=== PATIENT | female | born 1940 | race Two or more races ===

== ENCOUNTER 2017-06-01 12:57 | Emergency (ER) | payer SELFPAY ==
[2017-06-01] MEDS ORDERED: Aspirin Low Dose CHEW TAB* 81 MG ONE (13:16)
[2017-06-01 13:44] VITALS: BP 168/93
[2017-06-01] MEDS ORDERED: NS 0.9% 500 ML BAG* 500 ML IV ONE (14:22)
[2017-06-01] MEDS ORDERED: Aspirin Low Dose CHEW TAB* 81 MG PO ONE (14:23)
--- NOTE | 2017-06-14 09:07 | UC ---
Rodolfo Washington Angela, scribed for Florencia Baldwin MD on 06/01/17 at 1341 . Cardiac HPI - HPI Summary HPI Summary: Ms. Everett is a pleasant 77 yo female, brought to [facility] from [place], c/o anxiety and diaphoresis. CT was for R shoulder pain x approx 3 days. 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 No report GI issues (although possible nausea?), no urinary sx (last urine approx 8am). Unclear last po. History difficult to obtain, pt is very anxious. Her pcp is in [facility], her family member (physician) primarily cares for her here in [place]. NOTE - history difficult to obtain due to general condition - History of Current Complaint Stated Complaint: CHEST PAIN Hx Obtained From: Patient, Family/Line Clearance Foreman Hx From Patient Unobtainable Due To: Other - LEVEL 5 CAVEAT - SOB, extremis Onset/Duration: Lasting Days Initial Severity: Moderate Current Severity: Severe Character: Heaviness Associated Signs & Symptoms: Positive: Chest Pain, SOB - Allergy/Home Medications Allergies/Adverse Reactions: Allergies Allergy/AdvReac Type Severity Reaction Status Date / Time Penicillins Allergy Rash Verified 06/01/17 14:00 PMH/Surg Hx/FS Hx/Imm Hx Previously Healthy: No - aortic stenosis with regurg, leiomyoma, anxiety Psychological History: Anxiety - Family History Known Family History: Positive: Unknown - due to level 5 caveat due to extremis Review of Systems Constitutional: Fatigue Skin: Other - diaphoretic Respiratory: Shortness Of Breath Cardiovascular: Chest Pain Gastrointestinal: Nausea Genitourinary: Negative Motor: Other - see hpi R hip discomfort 2/2 previous fall, but pt's son thinks ok Neurovascular: Other - see hpi. moving all 4 ext's Musculoskeletal: Other: - right shoulder pain. Neurological: Other - see hpi Psychological: Anxious Is Patient Immunocompromised?: No - none known All Other Systems Reviewed And Are Negative: No - Comments Additional Review of Systems Comments: ROS LIMITED BY LEVEL 5 CAVEAT - EXTREMIS Physical Exam Triage Information Reviewed: Yes Completion Of Physical Exam Limited Due To: Extremis Appearance: Well-Nourished, Ill-Appearing Vital Signs: Initial Vitals Temp Pulse Resp BP Pulse Ox 98.1 F 139 40 168/93 89 06/01/17 13:39 06/01/17 13:39 06/01/17 13:39 06/01/17 13:39 06/01/17 13:39 Vital Signs Reviewed: Yes Eye Exam: Normal - grossly normal. pupils equal bilat, opens eyes to command. ENT Exam: Normal - grossly normal, detailed not done. no stridor, no trismus Neck: Positive: Supple, Nontender Respiratory Exam: Other - decreased bibasilar breath sounds, breath sounds as auscultated are clear upper lobe (pt at approx 45 deg) Respiratory: Positive: Respiratory distress Cardiovascular Exam: Other - Tachycardic, rate regular, correlates with L radial pulse Abdominal Exam: Other - + abd distension, no fluid wave appreciated. Does not seem tender. Bowel Sounds: Positive: Present Musculoskeletal Exam: Normal - moves all 4 ext's, appears equal. Pt on stretcher at exam. Neurological Exam: Other - responds to questions single word appropriately. Follow simple commands. Psychological: Positive: Normal Response To Family Skin Exam: Other - + diaphoretic - Assessment/Plan Course Of Treatment: Brought directly over from CT. She did not have the CT, nor did she receive contrast. Pt's son arrived at bedside, reported that she does have a hx of anxiety reactions with diaphoresis, as such he and pt initially declined oxygen. However, they ultimately agreed. Pulse ox initially 97% ra, but decreased to low 80's, increased with oxygen face mask to 100%. VS noted. BG 193mg/dl. EKG reviewed - no old ekg available in [facility] - sinus tachy 115bpm, inv T's 3/F. Several non-spec ST / T abnormalities. EMS was called emergently immediately upon arrival to [facility] (see RN notes re arrival details). ASA 81mg po x 4 administered. Saline lock established with IV's just as EMS arrived. I notified Dr. Mota ED. - Clinical Impression Provider Diagnoses: R chest (shoulder) pain. sob in extremis Discharge - Discharge Plan Condition: Guarded Disposition: TRANS HIGHER LVL OF CARE FAC Referrals: Shankar Everett MD [Primary Care Provider] - The documentation as recorded by the Rodolfo davalos Angela accurately reflects the service I personally performed and the decisions made by me, Florencia Baldwin MD.
== END 2017-06-01 13:47 | disposition short-term general hospital (02) ==
LOC: UCEAST 12:57
DX: R07.89 Other chest pain (principal); M25.511 Pain in right shoulder; R06.02 Shortness of breath; R61 Generalized hyperhidrosis; F41.9 Anxiety disorder, unspecified; R00.0 Tachycardia, unspecified; R11.0 Nausea; M25.551 Pain in right hip; I35.0 Nonrheumatic aortic (valve) stenosis; Z88.0 Allergy status to penicillin
CPT/HCPCS: 99203; A9270-GY; G0463

== ENCOUNTER 2017-06-01 13:42 | Inpatient (IN) | payer SELFPAY ==
[2017-06-01] MEDS ORDERED: Aspirin Low Dose CHEW TAB* 81 MG PO ONE (14:07)
[2017-06-01] MEDS ORDERED: NS 0.9% 1000 ML* 1,000 ML IV ONE (14:07)
[2017-06-01] MEDS ORDERED: LORazepam INJ* 2 MG/ML 1 ML VIAL IV PUSH ONE (14:08)
[2017-06-01 14:09] LABS: FIO2 100
[2017-06-01 14:14] LABS: PCO2 Arterial 24 mmHg (35-45)
--- NOTE | 2017-06-01 14:29 | RAD ---
INDICATION: Shortness of breath COMPARISON: Chest x-ray dated September 24, 2016 TECHNIQUE: Single AP portable view of the chest was obtained. FINDINGS: Image quality is compromised due to the relative inferiority of a portable chest x-ray. There is mild cardiomegaly not readily appreciated on the previous chest x-ray. There is faint calcification overlying the arch of the aorta. Centrally the pulmonary vasculature is engorged and indistinct. The lungs are grossly clear. Visualized bones are normal for the patient's age. IMPRESSION: Chest x-ray findings are most consistent with cardiogenic pulmonary edema. Follow-up chest x-ray after an appropriate course of therapy is advised to ascertain resolution of imaging findings.
[2017-06-01 14:31] LABS: Hematocrit 38 % (35-47); Hemoglobin 11.9 g/dl (12.0-16.0); Mean Corpuscular HGB Conc 32 g/dl (31-36); Mean Corpuscular Hemoglobin 27 pg (27-31); Mean Corpuscular Volume 84 fL (80-97); Mean Platelet Volume 11 um3 (7.4-10.4); Red Blood Count 4.48 10^6/ul (4.0-5.4); Red Cell Distribution Width 15 % (10.5-15); White Blood Count 22.3 10^3/ul (3.5-10.8)
[2017-06-01 14:33] LABS: Add Diff/Slide Review? Slide Review Added; Comments Flag Yes
[2017-06-01] MEDS ORDERED: Furosemide IV* 10 MG/ML 10 ML VIAL (100 MG) IV ONE (14:42)
[2017-06-01 14:46] LABS: Albumin 4.2 g/dL (3.2-5.2); Alkaline Phosphatase 146 U/L (34-104); BUN/Creatinine Ratio 20.7 (8-20); Blood Urea Nitrogen 31 mg/dL (6-24); Calcium 9.5 mg/dL (8.6-10.3); Chloride 79 mmol/L (101-111); EGFR African American 43.4 (>60); EGFR Non-African American 33.8 (>60); Globulin 2.9 g/dL (2-4); Glucose 182 mg/dL (70-100); Magnesium 2.6 mg/dL (1.9-2.7); Total Protein 7.1 g/dL (6.4-8.9)
[2017-06-01 15:07] LABS: Potassium 5.3 mmol/L (3.5-5.0); Troponin I 0.08 ng/mL (<0.04)
[2017-06-01 15:08] LABS: Sodium 112 mmol/L (133-145)
[2017-06-01 15:09] LABS: Anion Gap 21 mmol/L (2-11); CO2 Carbon Dioxide 12 mmol/L (22-32)
[2017-06-01 15:12] LABS: TSH (Thyroid Stimulating Horm) 1.69 mcIU/mL (0.34-5.60)
[2017-06-01] MEDS ORDERED: Sodium Bicarbonate 8.4%* 50 ML SYRINGE ONE (15:14)
[2017-06-01 15:20] LABS: ALT 788 U/L (7-52); AST 1590 U/L (13-39)
[2017-06-01] MEDS: Sodium Bicarbonate 8.4%* 50 ML SYRINGE IV ONE ×2 (15:20→19:21)
[2017-06-01] MEDS: Sodium Bicarbonate 8.4% IV* 50 ML VIAL IV ONE ×2 (15:21→19:21)
[2017-06-01] MEDS ORDERED: NS 0.9% 1000 ML* 3,000 ML IV ONE ×2 (15:43→16:22)
[2017-06-01] MEDS ORDERED: Iodixanol* (CONTRAST) 320 MG/ML 100 ML SDV IV ONE (16:04)
[2017-06-01 16:19] LABS: Urine Bilirubin Negative (Negative); Urine Glucose Negative (Negative); Urine Nitrite Negative (Negative)
--- NOTE | 2017-06-01 16:20 | RAD ---
HISTORY: Chest pain, shortness of breath, back pain, COMPARISONS: None TECHNIQUE: Multiple contiguous axial CT scans were obtained of the chest, abdomen, and pelvis after the administration of intravenous contrast, timed to the pulmonary arterial phase of contrast demonstration.. Coronal and sagittal multiplanar reformations are submitted for review.. Oral contrast was not administered. FINDINGS: The study is limited by the phase of intravenous contrast administration. This limits evaluation of the solid organs and systemic arterial vasculature. CHEST NECK AND THYROID: The lower neck and thyroid are unremarkable. CHEST WALL: There is no lower cervical, axillary, or supraclavicular lymphadenopathy by size criteria. HEART AND PERICARDIUM: The heart is unremarkable. AORTA AND PULMONARY VASCULATURE: There is no pulmonary arterial filling defects to suggest pulmonary embolism. There is dilatation of the ascending thoracic aorta which measures up to 4.4 centers in transverse dimension. No contrast is noted within the aorta which precludes evaluation for dissection. There is no periaortic hematoma to suggest ruptured aneurysm. MEDIASTINUM: There is no mediastinal lymphadenopathy by size criteria. MARISA: There is no hilar lymphadenopathy by size criteria. AIRWAY AND ESOPHAGUS: The airway is unremarkable, without endobronchial filling defect. The esophagus is grossly normal. LUNG PARENCHYMA: The lungs are clear. PLEURA: There is a small right pleural effusion BONES AND SOFT TISSUES: No bone or soft tissue abnormalities are noted. ABDOMEN/PELVIS: LIVER: The liver is homogeneously enlarged measuring 21 cm in long axis. BILE DUCTS: There is no intrahepatic or extrahepatic biliary dilatation. GALLBLADDER: The gallbladder is normal, without pericholecystic inflammatory change. PANCREAS: The pancreas is normal, without mass or ductal dilatation. SPLEEN: Normal in size and appearance. UPPER GI TRACT: Evaluation of the gastrointestinal tract is limited by incomplete gastric distention. The upper GI tract is unremarkable. SMALL BOWEL \T\ MESENTERY: The small bowel is normal in contour, course, and caliber. There is no obstruction or dilatation. COLON: The colon is normal in contour, course, caliber. There is no pericolonic inflammatory change. ADRENALS: Normal bilaterally. KIDNEYS: The kidneys are normal in shape, size, contour, and axis. There is no hydronephrosis or nephrolithiasis. BLADDER: The bladder is collapsed and a Lancaster catheter. PELVIC ORGANS: The uterus is diffusely enlarged measuring up to 17 cm, with multiple calcified uterine fibroids. AORTA: There is calcific atherosclerotic disease of the abdominal aorta and its branches, without aneurysmal dilatation IVC: Unremarkable LYMPH NODES: There is no lymphadenopathy by size criteria. ABDOMINAL WALL: There is no evidence for abdominal wall hernia. BONES: There are mild diffuse degenerative changes. OTHER: There is a small amount of ascites. IMPRESSION: 1. EVALUATION IS LIMITED THE CONTRAST ENHANCEMENT IS LIMITED TO THE PULMONARY ARTERIAL PHASE WHICH PRECLUDES EVALUATION FOR AORTIC DISSECTION. 2. THERE IS NO PULMONARY ARTERIAL FILLING DEFECT TO SUGGEST PULMONARY EMBOLISM. 3. THERE IS ANEURYSMAL DILATATION OF THE ASCENDING THORACIC AORTA. THERE IS NO PERIAORTIC HEMATOMA TO SUGGEST RUPTURED ANEURYSM. 4. THERE IS A SMALL RIGHT PLEURAL EFFUSION. 5. THERE IS A SMALL AMOUNT OF ASCITES. 6. HEPATOMEGALY. 7. ENLARGED, FIBROID UTERUS
[2017-06-01 16:24] LABS: Urine Bacteria Absent (Absent)
[2017-06-01] MEDS ORDERED: KETAMINE HCL* 50 MG/ML 10 ML VIAL ONE (16:34)
[2017-06-01] MEDS ORDERED: Midazolam* 1 MG/ML 10 ML VIAL (10 MG) ONE (16:34)
[2017-06-01] MEDS ORDERED: Propofol* 100 ML ONE (16:39)
[2017-06-01] MEDS ORDERED: fentaNYL* 50 MCG/ML 5 ML VIAL (250 MCG VIAL) ONE (16:48)
[2017-06-01 16:51] LABS: Creatine Kinase 252 U/L (10-223)
[2017-06-01] MEDS ORDERED: fentaNYL* 50 MCG/ML 2 ML VIAL (100 MCG VIAL) IV SLOW PU ONE (17:00)
[2017-06-01 17:18] LABS: Acetaminophen < 15 mcg/mL; Salicylate < 2.50 mg/dL (<30)
[2017-06-01] MEDS ORDERED: ACETYLCYSTEINE IVPB ONE ×3 (17:33→22:33)
[2017-06-01] MEDS ORDERED: D5W IVPB ONE ×3 (17:33→22:33)
[2017-06-01] MEDS ORDERED: Albuterol/Ipratropium NEB.SOL* Albuterol 2.5 MG/Ipratropium 0.5 MG 3 ML INH PRN (17:42)
[2017-06-01 17:51] LABS: Venous Bicarbonate HCO3 19.1 mmol/L (24-28)
[2017-06-01 17:57] LABS: Hematocrit 30 % (35-47); Hemoglobin 9.6 g/dl (12.0-16.0); Mean Corpuscular HGB Conc 32 g/dl (31-36); Mean Corpuscular Hemoglobin 26 pg (27-31); Mean Corpuscular Volume 83 fL (80-97); Mean Platelet Volume 10 um3 (7.4-10.4); Red Blood Count 3.63 10^6/ul (4.0-5.4); Red Cell Distribution Width 15 % (10.5-15); White Blood Count 18.4 10^3/ul (3.5-10.8)
[2017-06-01] MEDS ORDERED: Norepinephrine 16MCG/ML IVPRE* 4,000 MCG/250 ML BAG IV ONE (18:05)
[2017-06-01 18:09] LABS: Albumin 2.9 g/dL (3.2-5.2); BUN/Creatinine Ratio 25.4 (8-20); Calcium 7.7 mg/dL (8.6-10.3); Direct Bilirubin 1.9 mg/dL (0.03-0.18); EGFR African American 51.2 (>60); EGFR Non-African American 39.8 (>60); Globulin 1.9 g/dL (2-4); Indirect Bilirubin 1.4 mg/dL (0.3-1.0); Phosphorus 4.6 mg/dL (2.5-5.0); Potassium 4.5 mmol/L (3.5-5.0); Total Bilirubin 3.3 mg/dL (0.2-1.0); Total Protein 4.8 g/dL (6.4-8.9)
[2017-06-01] MEDS ORDERED: Phytonadione INJ (Adult)* 10 MG in NS 0.9% 50 ML* 50 ML IV ONE (18:17)
[2017-06-01 18:25] LABS: Troponin I 0.07 ng/mL (<0.04)
--- NOTE | 2017-06-01 18:32 | RAD ---
HISTORY: Post intubation, central line placement COMPARISONS: June 01, 2017 VIEWS: 1: frontal portable view of the chest at 5:50 PM FINDINGS: LINES AND TUBES: An endotracheal tube is noted overlying the trachea with the tip just above the gilberto. A right internal jugular venous catheter is noted with the tip overlying the cavoatrial junction. A gastric tube is noted with the tip in the left upper quadrant in a prepyloric position. CARDIOMEDIASTINAL SILHOUETTE: The cardiac silhouette is enlarged. The cardiomediastinal silhouette is otherwise normal for portable technique. PLEURA: The costophrenic angles are sharp. No pleural abnormalities are noted. LUNG PARENCHYMA: The lungs are clear. ABDOMEN: The upper abdomen is clear. There is no subphrenic gas. BONES AND SOFT TISSUES: No bone or soft tissue abnormalities are noted. IMPRESSION: 1. LINES AND TUBES ABOVE. 2. CARDIOMEGALY.
--- NOTE | 2017-06-01 18:51 | ED ---
Leanne Washington Thomas, scribed for Nick Moat MD on 06/01/17 at 1427 . Shortness of Breath - HPI Summary HPI Summary: The pt is a 77 y/o F BIBA from [facility] and c/o sudden-onset SOB that began this AM at 10:00. Her son, who is also her PCP, is her historian d/t her moderate respiratory distress. Today, she was scheduled for a CT Chest/Abd/Pel without contrast, and after taking Zofran before the procedure, she became anxious, diaphoretic, and had labored breathing. The CT scan was scheduled because she has been having 5 days of nausea as well as longstanding abdominal complaints. Pt additionally c/o R shoulder pain and lumbar-region back pain. She is diaphoretic. She has not slept well for the last five days. She may have inured herself in the bathroom yesterday night. She has had anxiety attacks throughout her life, but none of her prior attacks have been to this severity or did she have diaphoresis. Pt denies fever. Her heart rate is normally 110. The only medications she has taken today are her anxiolytic medication as well as the Zofran. She does not have any recent travel or surgeries. PMHx: aortic stenosis , regurgitation, DM, leiomyoma. SHx: no smoking, no alcohol use, no illicit drug use. FHx: DM, HLD. - History of Current Complaint Chief Complaint: EDShortnessOfBreath Time Seen by Provider: 06/01/17 14:02 Hx Obtained From: Patient, Family/Contract Administration Manager - son Dr. Everett is present Onset/Duration: Sudden Onset, Lasting Hours - onset this AM at 10:00, Still Present Timing: Constant Current Severity: Moderate Dyspnea At: Rest Aggrevating Factors: Nothing Alleviating Factors: Nothing Associated Signs & Symptoms: Negative - Allergy/Home Medications Allergies/Adverse Reactions: Allergies Allergy/AdvReac Type Severity Reaction Status Date / Time Penicillins Allergy Rash Verified 06/01/17 14:00 PMH/Surg Hx/FS Hx/Imm Hx Previously Healthy: No Endocrine/Hematology History: Reports: Hx Diabetes Cardiovascular History: Reports: Other Cardiovascular Problems/Disorders - Hx aortic stenosis, regurgitation - Cancer History Cancer Type, 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 Negative: Fever Positive: Shortness Of Breath - onset this AM at 10:00, Other - POS: tachypnic, labored breathing Positive: Nausea - x5 days, Other - POS: longstanding abdominal complaints Positive: Other - POS: R shoulder back, lumbar-region back pain Neurological: Other - POS: insomnia (x5 days) All Other Systems Reviewed And Are Negative: Yes Physical Exam - Summary Physical Exam Summary: The patient is well-nourished in moderate respiratory distress and in no acute pain. The skin is warm and diaphoretic and skin color reflects adequate perfusion. There is decreased skin turgor. HEENT: The head is normocephalic and atraumatic. The pupils are equal and reactive. The conjunctivae are clear and without drainage. Nares are patent and without drainage. Mouth reveals dry mucous membranes and the throat is without erythema and exudate. The external ears are intact. The ear canals are patent and without drainage. The tympanic membranes are intact. Neck is supple with full range of motion and non-tender. There are no carotid bruits. There is neck vein distension. There is no stridor. There is a positive hepatojugular reflux. Respiratory: Chest is non-tender. There are intercostal retractions and superclavicular retractions. There are bibasilar rales. There is no wheezing Cardiovascular: Heart is tachycardic and regular rhythm. There is no rub auscultated. She has a murmur heard best at the 2nd intercostal space. There is no slight pedal edema of the lower extremities and pulses are symmetrical and equal. Abdomen: The abdomen is soft and non-tender. There is no organomegaly palpated. The abdomen is distended. Musculoskeletal: There is no back pain noted. Extremities are non-tender with full range of motion. There is good capillary refill at 3 seconds. There is slight pedal edema of the lower extremities. There is no calf tenderness elicited. There are no pulsatile masses. There is some right-sided lumbar pain appreciated, but there is no bruising. Neurological: Patient is alert and oriented to person, place and time. The patient has symmetrical motor strength in all four extremities. Cranial nerves are grossly intact. Deep tendon reflexes are symmetrical and equal in all four extremities. There is no focal weakness. Psychiatric: The patient is alert, visibly anxious, and in moderate distress. She is able to sit up to commands. Triage Information Reviewed: Yes Vital Signs On Initial Exam: Initial Vitals Temp Pulse Resp BP Pulse Ox 97.5 F 111 32 159/63 100 06/01/17 13:58 06/01/17 13:58 06/01/17 13:58 06/01/17 13:58 06/01/17 13:58 Vital Signs Reviewed: Yes - Jaziel Coma Scale Coma Scale Total: 14 Diagnostics - Vital Signs Vital Signs Temp Pulse Resp BP Pulse Ox 06/01/17 14:12 110 28 100 06/01/17 14:11 159/78 06/01/17 13:58 97.5 F 111 32 159/63 100 - Laboratory Lab Results: Lab Results 06/01/17 Range/Units 14:00 Patient Temperature Not Reportable ABG pH Pending ABG pH (Temp Correct) Pending ABG pCO2 Pending ABG pCO2 (Temp Corrct Pending ABG pO2 Pending ABG pO2 (Temp Correct Pending ABG HCO3 Pending ABG O2 Saturation Pending ABG Base Excess Pending Respiration Rate Not Reportable O2 Delivery Device Nrb Ventilator Type Not Reportable Vent Mode Not Reportable FiO2 100 Inspiratory Time Not Reportable PEEP Not Reportable Pressure Support Not Reportable Pressure Control Not Reportable EPAP Not Reportable IPAP Not Reportable BiPAP Not Reportable Result Diagrams: 06/01/17 17:25 06/01/17 17:25 Lab Statement: Any lab studies that have been ordered have been reviewed, and results considered in the medical decision making process. - Radiology CXR Xray Interpretation: No Acute Changes - Chest x-ray findings are most consistent with cardiogenic pulmonary edema. Follow-up chest x-ray after an appropriate course of therapy is advised to ascertain resolution of imaging findings. ED physician has reviewed these findings and agrees. Radiology Interpretation Completed By: Radiologist Re-Evaluation - Re-Evaluation First Eval Re-Evaluation Time: 14:44 Change: Improved Comment: She is resting a bit more comofortably. She is still a bit tachypnic. Course/Dx - Course Assessment/Plan: The pt is a 77 y/o F BIBA from [facility] and c/o sudden-onset SOB that began this AM at 10:00. Her son, who is also her PCP, is her historian d/t her moderate respiratory distress. Today, she was scheduled for a CT Chest/Abd/ Pel without contrast, and after taking Zofran before the procedure, she became anxious, diaphoretic, and had labored breathing. The CT scan was scheduled because she has been having 5 days of nausea as well as longstanding abdominal complaints. Pt additionally c/o R shoulder pain and lumbar-region back pain. She is diaphoretic. She has not slept well for the last five days. She may have inured herself in the bathroom yesterday night. She has had anxiety attacks throughout her life, but none of her prior attacks have been to this severity or did she have diaphoresis. Pt denies fever. Her heart rate is normally 110. The only medications she has taken today are her anxiolytic medication as well as the Zofran. She does not have any recent travel or surgeries. PMHx: aortic stenosis, regurgitation, DM, leiomyoma. SHx: no smoking, no alcohol use, no illicit drug use. FHx: DM, HLD. At re-evaluation, she is feeling a bit more comfortable. She is still la bit tachypnic. In the ED course the patient was given ASA, Lasix, IV fluids, sodium bicarbonate, and Ativan. Bloodwork shows WBC 22.3, Hgb 11.9, INR 2.36, ABG pH 7.09, ABG pCO2 24, ABG pO2 232, ABG HCO3 8.6, ABG O2Sat 98.8, ABG base excess -21.0, Sodium 112, Potassium 5.3, Chloride 79, CO2 12, Anion gap 21, BUN 31, Creatinine 1.50, lactic acid 12.3, bilirubin 3.80, AST 1590, ALT 788, AlkPhos 146, Troponin 0.08, BNP 4971. I consulted extensively with Dr. Everett. Chest x-ray findings are most consistent with cardiogenic pulmonary edema. Follow-up chest x-ray after an appropriate course of therapy is advised to ascertain resolution of imaging findings. The patient is diagnosed with acute hepatic failure, respiratory distress, and acidosis. I consulted with Dr. Cruz, upper trimmer, who admits the patient to the ICU. 75 minutes critical care time. - Diagnoses Differential Diagnosis/HQI/PQRI: Positive: CHF, ME, Pneumonia, Pulmonary Embolism, Pulmonary Edema, Other - acute hepatic failure, acetaminophen overdose , Provider Diagnoses: Acidosis, Respiratory distress, Acute hepatic failure - Physician Notifications Discussed Care of Patient With: Jorge Cruz Time Discussed With Above Provider: 15:30 Instructed by Provider To: Other - Dr. Cruz, upper trimmer, admits the patient to [facility]. - Critical Care Time Critical Care Time: 30-74 min - 45 minutes Discharge - Discharge Plan Condition: Critical Disposition: ADMITTED TO [facility] Discharge Disposition Comment: By Dr. Cruz. The documentation as recorded by the Leanne davalos Thomas accurately reflects the service I personally performed and the decisions made by me, Nick Mota MD.
[2017-06-01] MEDS: Propofol* 100 ML IV SCH (19:23)
[2017-06-01] MEDS: Pantoprazole IV* 40 MG IV SCH (19:30)
--- NOTE | 2017-06-01 19:49 | HP ---
H&P (Free Text) History and Physical: CRITICAL CARE MEDICINE DATE: 06/01/17 TIME: 1700 PRIMARY CARE PROVIDER: Karlos REFERRING PROVIDER: Svetlana REASON/CHIEF COMPLAINT: MSOF HISTORY OF PRESENT ILLNESS: 77 F with h/o leiomyoma/uterine fibroid, mod , anxiety with recent complaints of R shoulder pains and increased anxiety. Questionable referred RUQ pain and was scheduled for CT today. When laying flat for CT she became extremly anxious and diaphoretic. She had dry heaves. BIBA to ED. Quiet anxious and tachypnic in ED. Given ativan and placed on bipap. CXR with mild fluid. planning ct but labs with multiple abnormalities and severe metabolic acidosis. Evaluated in ED. Pts son present. REVIEW OF SYSTEMS: As per HPI. anxious person but increased last 5 days. poor sleep. anorexia. dec Uout perhaps. PAST MEDICAL HISTORY: As per HPI. MEDICATIONS: Reviewed. recently trial of prosax 10mg daily for 2 days last week then stopped. Hydroxazine 500mg daily x 2days then stopped. Trimetazine. pepcid bid recently. ALLERGIES: PCN SOCIAL HISTORY: Reviewed. FAMILY HISTORY: Noncontributory at present. PHYSICAL EXAM: Vital Signs: Reviewed. Hr 70s, SBP into 80-90s. RR 30, 30% fio2, but MV ~16lpm on bipap. Neurologic: she had recieved ativan and was more lethargic to obtunded but still with work of breathing high HEENT: anicteric, perrl, mm dry Cardiovascular: s1, s2, 4/6 stas of Respiratory: fine crackles at bases but not diffuse Abdomen: distended, soft, no RUQ tenderness illicited Extremities: no edema, ice cold Access: piv LABS: Reviewed. IMAGING: Reviewed. MEDICATIONS: Reviewed. ASSESSMENT: 77 F with MSOF Multiple entities and ailments without pinpoint dx Acute to Subacute fulminate liver failure - likely toxin related Heptatic encephalopathy grade 2 at least with my exam Acute hypoxic respiratory failure, sec to compensation failure Severe lactic acidosis Acute renal failure DIC PLAN: admit to icu Neurologic: sedate with intubation. avoid any worsening potentials of cerebral edema with liver failure. keep comfortable. check amm. Cardiovascular: High metabolic demands, and underlying can become problematic and may need inotropic support if CO unable to keep up. But severely volume depleted for what her optimal needs are at present (not dehydrated alone leading to her ailment- optivolemic state at present will be overload to normal self). 6L bolus and f/u. Respiratory: intubate. mv. maintain ventilatory compensation and lung protection. Gastrointestinal: ogt. sup. liver is acting like a toxic insult with ischemic hepatocytes, non obstructive, and no vascular abn seen to explain on ct. seemingly more like a subacute liver failure now hopefully towards its peak rather then just acute today. numbers likely still to worsen but hopefully acceleration lessen. tx with nac (although tylenol neg) given potential toxins. Renal/Metabolic: stephanie sec to acid and pre-renal at present. hopefully can recover with volume loading. may need bicarb gtt buffer. As explained to pts son , would look if not improved by am with adequate renal work, to consider crrt. LA will be slow to clear but need to avoid acid creation. Infectious Disease: at risk but no acute abx needs. check bc. check hepatitis panel. Hematology: f/u dic panel. may need early vit k. potential need for cryo or at least ffp, but no acute bleeding at present. Endocrine: no steroid indication at present. f/u bg to ensure no hypoglycemia. Musculoskeletal: bedrest. Psych/Social: son updated at length and agreement with plans. Supportive and preventative care as ordered. SUP: ppi VTE prophylaxis: avoid chemical presently; scds. Lancaster catheter given critical illness, monitoring needs for accurate assessment of STEPHANIE and KDIGO criteria for critically ill patients and to avoid potential harms of urinary retention, skin breakdown/ulcers. Disposition: ICU Code Status: Full Critical Care Time: 135min, excl procedures FKathy Cruz DO
[2017-06-01] MEDS ORDERED: Norepinephrine 16MCG/ML IVPRE* 4,000 MCG/250 ML BAG IV SCH (20:00)
[2017-06-01] MEDS: NS 0.9% 1000 ML* 1,000 ML IV SCH ×2 (20:30→23:27)
[2017-06-01] MEDS: Chlorhexidine MOUTHWASH 0.12%* 15 ML UDC TOPICAL SCH ×2 (20:34→22:31)
[2017-06-01 22:23] LABS: Venous Bicarbonate HCO3 17.1 mmol/L (24-28)
[2017-06-01] MEDS: fentaNYL* 50 MCG/ML 2 ML VIAL (100 MCG VIAL) IV SLOW PU PRN (22:31)
--- NOTE | 2017-06-01 22:36 | PN ---
Progress Note - Progress Note Date of Service: 06/01/17 Note: CRITICAL CARE MEDICINE PROCEDURE NOTE DATE: 06/01/17 TIME: 1600 SERVICE: Critical Care Medicine LOCATION OF PROCEDURE: ICU PROCEDURE: Endotracheal intubation PROCEDURALIST: Dr. Cruz Consent obtain: Yes, procedure performed emergently Time out held: Not indicated INDICATION: Acute respiratory failure secondary to severe metabolic acidosis. PROCEDURE: Oxygenation maintained and vitals monitored. Patient in supine position. Pre-medication with fentanyl 50mcg, versed 4mg (additional 2mg post intubation) and 150mg ketamine. Glidescope #3 inserted with Grade 2 view obtained. 7.5 endotracheal tube inserted to 22cm lip. Good chest rise with breath sounds appreciated in bilaterally lung randolph. EtCO2 + color change. Portable chest x-ray with ett right above gilberto and re-tracted 2cm to 20cm. Patient otherwise tolerated well. Joan Cruz DO
[2017-06-01 22:39] LABS: Albumin 2.2 g/dL (3.2-5.2); BUN/Creatinine Ratio 26.7 (8-20); EGFR African American 78.3 (>60); EGFR Non-African American 60.9 (>60); Globulin 1.7 g/dL (2-4); Total Bilirubin 2.8 mg/dL (0.2-1.0); Total Protein 3.9 g/dL (6.4-8.9)
--- NOTE | 2017-06-01 22:39 | PN ---
Progress Note - Progress Note Date of Service: 06/01/17 Note: CRITICAL CARE MEDICINE PROCEDURE NOTE DATE: 06/01/17 TIME: 1640 SERVICE: Critical Care Medicine LOCATION OF PROCEDURE: ICU PROCEDURE: Central line insertion PROCEDURALIST: Dr. Cruz Consent obtain: Yes, verbal consent from pts son Dr. Donald Everett. Time out held: Yes INDICATION: MSOF, acute liver failure and hypovolemic shock PROCEDURE: Oxygenation maintained and vitals monitored. Patient in supine position. SITE: RIGHT Internal jugular Site preparation with chlorhexidine locally. Full sterile drape, gown, hat, mask, gloves. 5ml 1% Lidocaine utilized at incision site. Standard sterile Seldinger technique utilized via ultrasound guidance and catheter was inserted to 15cm and sutured in place. Good blood return. Minimal blood loss. Site dressed with tegaderm. Portable chest x-ray with line slightly low and retracted 2cm sterile to 13cm. Patient otherwise tolerated well. Joan Cruz, DO
[2017-06-01 22:42] LABS: Calcium 5.6 mg/dL (8.6-10.3); Troponin I 0.07 ng/mL (<0.04)
[2017-06-01] MEDS ORDERED: NS IV SCH ×2 (23:00)
[2017-06-01] MEDS ORDERED: SODIUM BICARBONATE IV SCH ×2 (23:00)
[2017-06-01] MEDS: Sodium Bicarbonate 8.4% IV* 75 MEQ in NS 0.45% 1000 ML BAG* 1,000 ML IVPB SCH (23:46)
[2017-06-02] MEDS: Chlorhexidine MOUTHWASH 0.12%* 15 ML UDC TOPICAL SCH ×5 (01:55→21:23)
[2017-06-02] MEDS: Sodium Bicarbonate 8.4% IV* 75 MEQ in NS 0.45% 1000 ML BAG* 1,000 ML IVPB SCH (06:04)
[2017-06-02 06:15] LABS: Hematocrit 31 % (35-47); Hemoglobin 10.3 g/dl (12.0-16.0); Mean Corpuscular HGB Conc 33 g/dl (31-36); Mean Corpuscular Hemoglobin 27 pg (27-31); Mean Corpuscular Volume 81 fL (80-97); Mean Platelet Volume 10 um3 (7.4-10.4); Red Blood Count 3.82 10^6/ul (4.0-5.4); Red Cell Distribution Width 15 % (10.5-15); White Blood Count 17.3 10^3/ul (3.5-10.8)
[2017-06-02] MEDS: Propofol* 100 ML IV SCH ×2 (06:17→18:51)
[2017-06-02 06:19] LABS: Venous Bicarbonate HCO3 20.9 mmol/L (24-28)
[2017-06-02 06:30] LABS: Albumin 2.6 g/dL (3.2-5.2); BUN/Creatinine Ratio 26.7 (8-20); Calcium 6.6 mg/dL (8.6-10.3); Direct Bilirubin 1.5 mg/dL (0.03-0.18); EGFR African American 65.5 (>60); Globulin 1.9 g/dL (2-4); Indirect Bilirubin 1.2 mg/dL (0.3-1.0); Phosphorus 2.3 mg/dL (2.5-5.0); Potassium 3.8 mmol/L (3.5-5.0); Total Bilirubin 2.7 mg/dL (0.2-1.0); Total Protein 4.5 g/dL (6.4-8.9)
[2017-06-02 07:09] LABS: Magnesium 1.5 mg/dL (1.9-2.7)
[2017-06-02] MEDS ORDERED: Magnesium Sulfate 2 GM IV* 2 GM/50 ML BAG IVPB ONE (07:39)
--- NOTE | 2017-06-02 07:45 | RAD ---
HISTORY: Line placement COMPARISONS: June 01, 2017 at 4:57 PM VIEWS: 1: frontal portable view of the chest at 11:07 PM FINDINGS: LINES AND TUBES: An endotracheal tube is noted with the tip overlying the trachea just above the gilberto. A right internal jugular venous catheter is noted with the tip overlying the cavoatrial junction. A gastric tube is noted. The tip is below the [id number] the current examination but is below the diaphragm. CARDIOMEDIASTINAL SILHOUETTE: The cardiac silhouette is enlarged. The cardiomediastinal silhouette is otherwise normal for portable technique. PLEURA: The costophrenic angles are sharp. No pleural abnormalities are noted. LUNG PARENCHYMA: The lungs are clear. ABDOMEN: The upper abdomen is clear. There is no subphrenic gas. BONES AND SOFT TISSUES: No bone or soft tissue abnormalities are noted. IMPRESSION: LINES AND TUBES ABOVE. CARDIOMEGALY.
--- NOTE | 2017-06-02 08:41 | RAD ---
HISTORY: Acute liver failure COMPARISONS: None TECHNIQUE: Multiple transverse and longitudinal ultrasound images were obtained of the right upper quadrant of the abdomen using grayscale, color Doppler, and spectral Doppler imaging. FINDINGS: LIVER: The liver is normal in shape, size, contour, and echogenicity. There are no focal parenchymal masses. There is normal hepatopedal flow of the portal vein on Doppler imaging. BILIARY TREE: There is no intrahepatic or extrahepatic biliary dilatation. The common duct measures 0.2 cm. GALLBLADDER: The gallbladder wall is thickened up to 1 cm. PANCREAS: The head of the pancreas is unremarkable. The tail of the pancreas is not well visualized secondary to overlying bowel gas. RIGHT KIDNEY: The right kidney is normal in shape, size, contour, and echogenicity. There is no hydronephrosis or nephrolithiasis. The right kidney measures 9.7 x 4.8 x 5.5 cm. AORTA AND IVC: The aorta and IVC are unremarkable. Normal hepatic vein waveforms are identified on spectral Doppler imaging. FLUID: There is a small amount of ascites OTHER FINDINGS: None. IMPRESSION: 1. ASCITES. 2. GALLBLADDER WALL THICKENING UP TO 1 CM IN SIZE WHICH MAY REFLECT HYPOPROTEINEMIA, REACTIVE EDEMA FROM LIVER INFLAMMATION, OR A PRIMARY INFECTIOUS OR INFLAMMATORY PROCESS OF THE GALLBLADDER.
[2017-06-02] MEDS ORDERED: Phytonadione INJ (Adult)* 10 MG/ML 1 ML AMP IV ONE (12:00)
--- NOTE | 2017-06-02 13:33 | PN ---
Progress Note - Progress Note Date of Service: 06/02/17 Note: CRITICAL CARE MEDICINE DATE: 06/02/17 TIME: 945 SUBJECTIVE: Patient seen and examined. son updated. PHYSICAL EXAM: Vital Signs: Reviewed. Hr 70s, SBP into 90 -100s coming off levo. 30% fio2, aprv. Neurologic: sedated to rass -2 with very low dose prop. grimace to stimuli and some spont movement but not spont opening eyes HEENT: anicteric, perrl, mm appear dry Cardiovascular: s1, s2, 4/6 stas of Respiratory: coarse bl no rales Abdomen: distended, soft, anasacra Extremities: 3+edema, warmer Access: cvc LABS: Reviewed. IMAGING: Reviewed. MEDICATIONS: Reviewed. ASSESSMENT: 77 F with MSOF Acute to Subacute fulminate liver failure - likely toxin related of unknown etiology Heptatic encephalopathy grade 2 to 3 at this stage likely Acute hypoxic respiratory failure, sec to compensation failure, stable Severe lactic acidosis, resolving slowly Acute renal failure - holding DIC - still with depletion but no active bleeding PLAN: Neurologic: maintain on prop today. prn fent. encephalopathy +/- delirium may be more present or confounding but allow time. eventually tailor lactulose needs to degree + rifamin perhaps. Cardiovascular: demands are much better. perfusing well. intravasc volume holding and interstial volume up to an optivolemic standpoint at present which will ultimately need to mobilize in flow phase as hopefully ebb needs fulfilled. tolerable. off levo. dec ivf. Respiratory: maintained of aprv protection today. MV better. high pressures dec some. Fio2 well. time Gastrointestinal: toxic acute liver insult and hepatocyte ischemia. etiology suspect. hopefully plateuaing at peak and follow for improvement pattern. f/u synthetic function. trophic tf today. may need some time and then lactulose needs and bowel regimen as needed. US liver today to ensure no surprises. Renal/Metabolic: natali holding. she is post contrast and need to watch. coming off bicarb buffer. if we have stability without acid production and adequate urine clearance she should continue to improve. No hd needs but still may be slow progress at first. f/u lytes Infectious Disease: at risk but no acute abx needs. hepatitis panel neg. Hematology: dic present but no active bleeding. can reserve ffp for now but low threshold for use. virt k again. would need cryo if bleeding occurs. Endocrine: no steroid indication at present. bg has been stable to reactively up. no hypoglycemia. no insulin needs yet. Musculoskeletal: bedrest. Psych/Social: son updated at length and agreement with plans. Supportive and preventative care as ordered. SUP: ppi VTE prophylaxis: avoid chemical presently; scds. Lancaster catheter given critical illness, monitoring needs for accurate assessment of NATALI and KDIGO criteria for critically ill patients and to avoid potential harms of urinary retention, skin breakdown/ulcers. Disposition: ICU Code Status: Full Critical Care Time: 75min Joan Cruz DO
[2017-06-02] MEDS ORDERED: Albumin Human 25%* 50 ML BTL IV ONE ×2 (14:07→20:37)
[2017-06-02 14:40] LABS: Venous Bicarbonate HCO3 23.1 mmol/L (24-28)
[2017-06-02] MEDS ORDERED: Norepinephrine 16MCG/ML IVPRE* 4,000 MCG/250 ML BAG IV SCH (14:40)
[2017-06-02 15:00] LABS: Albumin 2.6 g/dL (3.2-5.2); BUN/Creatinine Ratio 25.6 (8-20); Calcium 6.7 mg/dL (8.6-10.3); EGFR African American 57.8 (>60); Potassium 3.6 mmol/L (3.5-5.0); Total Bilirubin 2.5 mg/dL (0.2-1.0); Total Protein 4.6 g/dL (6.4-8.9)
[2017-06-02] MEDS ORDERED: ACETYLCYSTEINE IVPB ONE (15:00)
[2017-06-02] MEDS ORDERED: D5W IVPB ONE (15:00)
[2017-06-02] MEDS: Albumin Human 25%* 50 ML in PREMIX* 0 ML IV SCH ×2 (16:13→20:42)
[2017-06-02] MEDS: Pantoprazole IV* 40 MG IV SCH (18:51)
[2017-06-03] MEDS: Chlorhexidine MOUTHWASH 0.12%* 15 ML UDC TOPICAL SCH ×6 (00:37→20:45)
[2017-06-03] MEDS: Albumin Human 25%* 50 ML in PREMIX* 0 ML IV SCH ×2 (01:37→08:10)
[2017-06-03] MEDS: fentaNYL* 50 MCG/ML 2 ML VIAL (100 MCG VIAL) IV SLOW PU PRN ×6 (01:37→22:13)
[2017-06-03] MEDS: Propofol* 100 ML IV SCH ×2 (03:48→15:00)
[2017-06-03 05:59] LABS: Hematocrit 30 % (35-47); Hemoglobin 9.9 g/dl (12.0-16.0); Mean Corpuscular HGB Conc 34 g/dl (31-36); Mean Corpuscular Hemoglobin 27 pg (27-31); Mean Corpuscular Volume 82 fL (80-97); Mean Platelet Volume 10 um3 (7.4-10.4); Red Blood Count 3.62 10^6/ul (4.0-5.4); Red Cell Distribution Width 15 % (10.5-15); White Blood Count 14.4 10^3/ul (3.5-10.8)
[2017-06-03 06:09] LABS: BUN/Creatinine Ratio 21.3 (8-20); Calcium 7.2 mg/dL (8.6-10.3); EGFR African American 41.8 (>60); EGFR Non-African American 32.5 (>60); Magnesium 2.1 mg/dL (1.9-2.7); Phosphorus 2.1 mg/dL (2.5-5.0); Potassium 3.2 mmol/L (3.5-5.0)
[2017-06-03 06:17] LABS: Venous Bicarbonate HCO3 23.1 mmol/L (24-28)
[2017-06-03] MEDS ORDERED: Furosemide IV* 10 MG/ML VIAL (40 MG) IV SLOW PU ONE (07:35)
[2017-06-03] MEDS ORDERED: Albumin Human 25%* 50 ML BTL IV ONE (08:03)
[2017-06-03 08:05] LABS: Albumin 2.7 g/dL (3.2-5.2); Direct Bilirubin 1.2 mg/dL (0.03-0.18); Globulin 1.8 g/dL (2-4); Indirect Bilirubin 1.4 mg/dL (0.3-1.0); Total Bilirubin 2.6 mg/dL (0.2-1.0); Total Protein 4.5 g/dL (6.4-8.9)
[2017-06-03] MEDS ORDERED: Potassium Phosphate IV* 15 MMOLE in NS 0.9% 250 ML* 250 ML IVPB ONE (10:30)
--- NOTE | 2017-06-03 11:14 | PN ---
Progress Note - Progress Note Date of Service: 06/03/17 Note: CRITICAL CARE MEDICINE DATE: 06/03/17 TIME: 900 SUBJECTIVE: Patient seen and examined. d/w pts son via phone. PHYSICAL EXAM: Vital Signs: Reviewed. Hr 70s, SBP into 100s, map >65 off levo.30% fio2, aprv. Neurologic: sedated to rass -2; prop held and slow to respond but responding to pain and moving head about but no spont eye opening yet. scleral edema and mild jaundice, perrl. HEENT: mm appear dry with increased subglottic secretions Cardiovascular: s1, s2, 4/6 stas of Respiratory: coarse bl no rales Abdomen: distended, but less so, soft, anasacra in abd better, mild palpable ascites perhaps Extremities: 3+edema, warm Access: cvc LABS: Reviewed. IMAGING: Reviewed. MEDICATIONS: Reviewed. ASSESSMENT: 77 F with MSOF Acute toxic/ischemic hepatitis/hepatic failure- improving. Heptatic encephalopathy grade 2 perhaps but re-eval off prop today. Acute hypoxic respiratory failure - improving Hypovolemic shock on admission - improved Severe lactic acidosis, resolving Acute renal failure, multifactorial, including component of atn- holding DIC - improved. PLAN: Neurologic: sedation vacation today. re-eval neuro status. again, would have been at risk for cerebral edema and may have to consider ct if not awakening approporiately, but has concomitant multifactorial reasons including acute accelerate ammonia level for depressed mentation level as wekk as sedatives. give her time. Cardiovascular: perusing well. off levo. bp well. intravsacular maintained and interstial grossly overloaded to optivolemic resuscitation state but now needing to mobilize weight of water. awaiting improved renal recovery and/or diuetics phase. stable. Respiratory: FiO2 well. trial to cpap this am but ms inhibiting conversion. time. can place on apv today and see where her compliance remains. not ready for liberation yet as this may still take a few days to line up with her needs for hepatic and renal recovery, and more so mentation. Gastrointestinal: hepatitis improving. bili even down. inc tf as tolerable today. sup. at request of pts son will ask GI to eval for any further thoughts. can come off NAC today post 48hr tx and post peaked and improved transaminasis. add lactulose for BMs today but great to see ammonia clearing already showing the phase of this acute injury. again, number not always correlating with encephalopathy degree. clinical f/u Renal/Metabolic: natali holding but lag, perhaps post contrast or just oliguric atn phase post shock she is post contrast and need to watch. not requiring buffer. off ivf other then gtt needs. trial lasix today but still may be early for response. not acting hepatorenal which is great. At resquest of son we can ask nephro opinion as well. Na stable. gently replete K phos. 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 labs tomorrow. Infectious Disease: at risk but no acute abx needs. Hematology: dic improved; fibrinogen up and inr down. still holding off on hsq for now. Endocrine: no steroid indication at present. bg has been stable to reactively up. no hypoglycemia. no insulin needs yet. Musculoskeletal: bedres; skin precautions. see if she can have more spont movements today. pt eval soon. Psych/Social: son updated Supportive and preventative care as ordered. SUP: ppi VTE prophylaxis: avoid chemical presently; scds. Lancaster catheter given critical illness, monitoring needs for accurate assessment of NATALI and KDIGO criteria for critically ill patients and to avoid potential harms of urinary retention, skin breakdown/ulcers. Disposition: ICU Code Status: Full Critical Care Time: 60min Joan Cruz DO
--- NOTE | 2017-06-03 17:46 | CONS ---
NEPHROLOGY CONSULTATION: DATE OF CONSULT/DICTATION: 06/03/17 HISTORY OF PRESENT ILLNESS: Mrs. Everett is a 77-year-old woman with a history of diabetes mellitus type 2. She began to be sick approximately 5 days ago according to her son. She had severe nausea and retching, but very little in the way of true vomiting. She subsequently developed right shoulder pain. Her son suggested that she should stop the metformin that she had previously been taking at a dose of 500 mg daily. Her previous medical history is significant for diabetes mellitus type 2. She has been taking a herbal antianginal medication called trimetazidine. She has also been using hydroxyzine and Pepcid recently. She also was given 10 mg of Prozac a couple of days prior to admission because of what was presumed to be anxiety, but may have actually been hyperventilation secondary to developing metabolic acidosis. In the emergency room, she was found to have an acute liver injury with an increased anion gap metabolic acidosis. She was also hyponatremic. PHYSICAL EXAMINATION: At the present time, her blood pressure is 122/66 with pulse of 98, respirations are 33 on the ventilator. They have been aspirating some dark mucus from her lungs. Apparently, she had a traumatic intubation. She has chemosis, but she is anicteric. Her pupils are reactive. She had some scattered rhonchi. The heart revealed a regular rhythm. I actually did not hear a murmur which would be consistent with her known aortic stenosis; however , that was noted on admission. The abdomen is distended. Bowel sounds are positive. Her liver margin was just barely palpable below the costal margin. I could not hear bowel sounds. She has 1+ edema. Her urine output has been 558 in the last 24 hours. DIAGNOSTIC STUDIES/LAB DATA: Review of her laboratory studies reveals white count of 14.4; hemoglobin of 9.9; platelets of 106,000, down from 179,000 on presentation. Sodium 124, potassium 3.2, chloride 92, total CO2 of 20, her total CO2 was 12 on presentation. Calcium of 7.2, phosphorus of 2.1, magnesium is 2.1. Her AST is 1652, and that is down from a maximum of 4099. Her ALT is 986, down from a maximum of 1474. Her ammonia level is 81, down from a maximum of 148. Creatinine is 1.55, her baseline creatinine was 0.9 in September. Urinalysis is fairly unremarkable. IMPRESSION: 1. Fulminant hepatic injury. 2. Acute renal injury, probably acute tubular necrosis. 3. Increased anion gap metabolic acidosis. She did have an elevated lactic acid level, which was 12.3 on presentation. DISCUSSION: While it is certainly possible that should have gotten one of the myriad hepatotoxic herbal medications or supplements, there is also the possibility this could be related to the use of metformin, although personally myself on her dose of metformin, I have not seen this degree of hepatic injury, although I have seen lactic acidosis on a number of occasions. The metformin is not really a very satisfying unifying diagnosis, although I do think it is possible. At the present time, I think her medical regimen is highly appropriate. I would allow her respiratory status to dictate whether or not she is diuresed. I will probably repeat a chest x-ray at this time. I have discussed the case at length with Dr. Curz and with her son, Dr. Everett. [id number]/[facility] #: [id number] [facility] HOSPITALMarbella
[2017-06-03] MEDS: Pantoprazole IV* 40 MG IV SCH (18:12)
--- NOTE | 2017-06-03 19:04 | CONSULT ---
Consult Consult: REASON FOR CONSULTATION: LIVER FAILURE HPI: Patient is a 77 yo female who presented to [facility] ER with complaints of dyspnea, hx of nausea/emesis and sharp pain that radiated to her right shoulder on 06/01/17. In the ER, CT Chest/A/P was done and was negative for an acute process. She was noted to have multiple lab abnormalities including lactic acidosis with metabolic acidosis, acute kidney injury and was placed on Bipap for respiratory distress. She eventually developed acute respiratory failure and was intubated. She did require a levophed gtt for a little over a day but has been off of it since this morning and BP remains stable. LFTs and INR on admission were significantly elevated but have since been down-trending. GI was consulted per request of patient's son. Upon further questioning, patient's son states that she has been on an herbal supplements regularly for many months. She was given two doses of Prozac prior to admission but patient did not feel well on it thus it was discontinued. She was also on Pepcid BID, Hydroxazine, and Trimetazine as an outpatient. She was also on Metformin 500 mg daily but recently discontinued it per son request. No recent travels outside of the country over the last 5 years. Drinks etoh seldomly. No recent ingestion of mushrooms. No previous history of liver disease. Last LFTs back in September 2016 were normal. No weight changes. PMH: Uterine fibroids/leiomyoma, moderate , anxiety, DM. PSH: Leiomyoma surgery in 1970s, colonoscopy ~6 years ago. No previous EGD. ALLERGIES: PCN. SOCIAL HX: Seldom etoh use, no tobacco use, lives alone in her apartment. FH: No history of liver disease, DM on her both sides of her family. ROS: Pertinent positive and negative noted above in HPI. Otherwise on a 14- point scale have been negative. PHYSICAL EXAMINATION: Vital Signs Temp Pulse Resp BP Pulse Ox 98.7 F 91 22 125/51 99 06/03/17 16:00 06/03/17 18:01 06/03/17 18:00 06/03/17 18:00 06/03/17 18:01 GENERAL: Intubate and sedated. HEENT: Dry MM, ETT and dobhoff in place. CV: +KATHERIN. PULM: Coarse BS B/L. ADBOMEN: Distended (chronic distension due to leiomyoma per son), hypoactive bowel sounds x 4 quadrants. No R/G/R. EXTREMITIES: Warm, +3 edema in lower extremities. NEURO: Sedated, unable to be examined. LABS: Laboratory Last Values WBC 14.4 10^3/ul (3.5-10.8) H 06/03/17 05:37 RBC 3.62 10^6/ul (4.0-5.4) L 06/03/17 05:37 Hgb 9.9 g/dl (12.0-16.0) L 06/03/17 05:37 Hct 30 % (35-47) L 06/03/17 05:37 MCV 82 fL (80-97) 06/03/17 05:37 MCH 27 pg (27-31) 06/03/17 05:37 MCHC 34 g/dl (31-36) 06/03/17 05:37 RDW 15 % (10.5-15) 06/03/17 05:37 Plt Count 106 10^3/ul (150-450) L 06/03/17 05:37 MPV 10 um3 (7.4-10.4) 06/03/17 05:37 Neut % (Auto) 84.5 % (38-83) H 06/03/17 05:37 Lymph % (Auto) 8.6 % (25-47) L 06/03/17 05:37 Garrard % (Auto) 6.5 % (1-9) 06/03/17 05:37 Eos % (Auto) 0 % (0-6) 06/03/17 05:37 Baso % (Auto) 0.4 % (0-2) 06/03/17 05:37 Absolute Neuts (auto) 12.1 10^3/ul (1.5-7.7) H 06/03/17 05:37 Absolute Lymphs (auto) 1.2 10^3/ul (1.0-4.8) 06/03/17 05:37 Absolute Monos (auto) 0.9 10^3/ul (0-0.8) H 06/03/17 05:37 Absolute Eos (auto) 0 10^3/ul (0-0.6) 06/03/17 05:37 Absolute Basos (auto) 0.1 10^3/ul (0-0.2) 06/03/17 05:37 Absolute Nucleated RBC 0.03 10^3/ul 06/03/17 05:37 Nucleated RBC % 0.2 06/03/17 05:37 INR (Anticoag Therapy) 2.25 (0.89-1.11) H 06/03/17 05:37 APTT 33.6 seconds (26.0-36.3) 06/01/17 17:25 Fibrinogen 111 mg/dL (110.8-404.3) 06/03/17 05:37 Patient Temperature Not Reportable 06/01/17 14:00 ABG pH 7.09 (7.35-7.45) L* 06/01/17 14:00 ABG pH (Temp Correct) Not Reportable 06/01/17 14:00 ABG pCO2 24 mmHg (35-45) L 06/01/17 14:00 ABG pCO2 (Temp Corrct Not Reportable 06/01/17 14:00 ABG pO2 232 mmHg (80-100) H 06/01/17 14:00 ABG pO2 (Temp Correct Not Reportable 06/01/17 14:00 ABG HCO3 8.6 mmol/L (19-31) L* 06/01/17 14:00 ABG O2 Saturation 98.8 % (95-98) H 06/01/17 14:00 ABG Base Excess -21.0 (-2.0-2.0) L 06/01/17 14:00 VBG pH 7.46 (7.33-7.43) H 06/03/17 05:37 VBG pCO2 31 mmHg (41-51) L 06/03/17 05:37 VBG pO2 TNP 06/03/17 05:37 VBG HCO3 23.1 mmol/L (24-28) L 06/03/17 05:37 VBG O2 Saturation 56.0 % (70-80) L 06/03/17 05:37 VBG Base Excess -1.2 (0-4) L 06/03/17 05:37 Respiration Rate Not Reportable 06/01/17 14:00 O2 Delivery Device Nrb 06/01/17 14:00 Ventilator Type Not Reportable 06/01/17 14:00 Vent Mode Not Reportable 06/01/17 14:00 FiO2 100 06/01/17 14:00 Inspiratory Time Not Reportable 06/01/17 14:00 PEEP Not Reportable 06/01/17 14:00 Pressure Support Not Reportable 06/01/17 14:00 Pressure Control Not Reportable 06/01/17 14:00 EPAP Not Reportable 06/01/17 14:00 IPAP Not Reportable 06/01/17 14:00 BiPAP Not Reportable 06/01/17 14:00 Sodium 124 mmol/L (133-145) L 06/03/17 05:37 Potassium 3.2 mmol/L (3.5-5.0) L 06/03/17 05:37 Chloride 92 mmol/L (101-111) L 06/03/17 05:37 Carbon Dioxide 20 mmol/L (22-32) L 06/03/17 05:37 Anion Gap 12 mmol/L (2-11) H 06/03/17 05:37 BUN 33 mg/dL (6-24) H 06/03/17 05:37 Creatinine 1.55 mg/dL (0.51-0.95) H 06/03/17 05:37 Est GFR ( Amer) 41.8 (>60) 06/03/17 05:37 Est GFR (Non-Af Amer) 32.5 (>60) 06/03/17 05:37 BUN/Creatinine Ratio 21.3 (8-20) H 06/03/17 05:37 Glucose 169 mg/dL (70-100) H 06/03/17 05:37 POC Glucose (mg/dL) 205 mg/dL (70-100) H 06/03/17 04:35 Lactic Acid 2.1 mmol/L (0.5-2.0) H* 06/03/17 05:37 Calcium 7.2 mg/dL (8.6-10.3) L 06/03/17 05:37 Ionized Calcium 3.78 mg/dL (4.65-5.28) L 06/02/17 05:36 Phosphorus 2.1 mg/dL (2.5-5.0) L 06/03/17 05:37 Magnesium 2.1 mg/dL (1.9-2.7) 06/03/17 05:37 Total Bilirubin 2.60 mg/dL (0.2-1.0) H 06/03/17 05:37 Direct Bilirubin 1.20 mg/dL (0.03-0.18) H 06/03/17 05:37 Indirect Bilirubin 1.4 mg/dL (0.3-1.0) H 06/03/17 05:37 AST 1652 U/L (13-39) H 06/03/17 05:37 ALT 986 U/L (7-52) H 06/03/17 05:37 Alkaline Phosphatase 90 U/L (34-104) 06/03/17 05:37 Ammonia 81 mol/L (16-53) H 06/03/17 05:37 Lactate Dehydrogenase 5114 U/L (140-271) H 06/02/17 05:36 Total Creatine Kinase 252 U/L (10-223) H 06/01/17 14:10 Troponin I 0.07 ng/mL (<0.04) H* 06/01/17 22:09 B-Natriuretic Peptide > 4971 pg/mL (-100) H 06/01/17 14:10 Total Protein 4.5 g/dL (6.4-8.9) L 06/03/17 05:37 Albumin 2.7 g/dL (3.2-5.2) L 06/03/17 05:37 Globulin 1.8 g/dL (2-4) L 06/03/17 05:37 Albumin/Globulin Ratio 1.5 (1-3) 06/03/17 05:37 TSH 1.69 mcIU/mL (0.34-5.60) 06/01/17 14:10 Urine Color Yellow 06/01/17 16:05 Urine Appearance Clear 06/01/17 16:05 Urine pH 5.0 (5-9) 06/01/17 16:05 Ur Specific [place] 1.025 (1.010-1.030) 06/01/17 16:05 Urine Protein 3+(>=500 mg/dl) (Negative) H 06/01/17 16:05 Urine Ketones Negative (Negative) 06/01/17 16:05 Urine Blood Negative (Negative) 06/01/17 16:05 Urine Nitrate Negative (Negative) 06/01/17 16:05 Urine Bilirubin Negative (Negative) 06/01/17 16:05 Urine Urobilinogen Negative (Negative) 06/01/17 16:05 Ur Leukocyte Esterase Negative (Negative) 06/01/17 16:05 Urine WBC (Auto) Absent (Absent) 06/01/17 16:05 Urine RBC (Auto) Absent (Absent) 06/01/17 16:05 Ur Squamous Epith Cells Present (Absent) H 06/01/17 16:05 Amorphous Crystals Present (Absent) H 06/01/17 16:05 Urine Bacteria Absent (Absent) 06/01/17 16:05 Hyaline Casts Present (Absent) H 06/01/17 16:05 Urine Glucose Negative (Negative) 06/01/17 16:05 Urine Ascorbic Acid * (Negative) H 06/01/17 16:05 Salicylates < 2.50 mg/dL (<30) 06/01/17 14:10 Acetaminophen < 15 mcg/mL 06/01/17 14:10 Hepatitis A IgM Ab Nonreactive (Nonreactive) 06/01/17 22:09 Hep Bs Antigen Nonreactive (Nonreactive) 06/01/17 22:09 Hep B Core IgM Ab Nonreactive (Nonreactive) 06/01/17 22:09 Hepatitis C Antibody Nonreactive (Nonreactive) 06/01/17 22:09 Blood Type O Positive 06/01/17 17:25 Antibody Screen Negative 06/01/17 17:25 A/P: 80 female who presented with MOSF of unknown etiology at this time. GI was consulted for further evaluation of acute liver failure. 1. Acute liver failure - improving. ~May be secondary to medications (prescribed vs herbal supplements) vs toxins vs ischemia (may be a combination as well). ~Off levophed gtt since this morning. ~NAC x 48 hours is complete. ~Acetaminophen and salicylate levels were normal on admission. ~LFTs and INR are downtrending. Trend daily. ~Last platelet count was 106. ~Lactic acidosis is improving. ~Blood and urine cultures have been negative. ~Lactulose started for possible hepatic encephalopathy. May add Rifaximin 550 po BID when able. ~US revealed mild ascites. Spoke with gunner mate and will hold off on paracentesis for now as it's a minimal amount. ~CT revealed hepatomegaly. ~Patient's son will visit patient's apartment to see is she may have ingested a toxin. ~Receiving TFs via [facility] for nutrition. ~May need an outpatient liver work-up if necessary when stable. 2. Respiratory Failure ~Intubate and sedated on propofol gtt. 3. Acute Kidney Injury - worsening. ~Likely multifactorial ~Doubt HRS. ~Nephro following. Likely from ATN. ~Monitor kidney function. 4. Leukocytosis - improving. ~Likely reactive. ~Infectious work-up has been negative thus far. Discussed with nursing staff, patient's son, and Dr. Cruz. Will follow closely. Please do not hesitate to contact us with any further questions or concerns. Florencia Stover D.O.
[2017-06-04] MEDS: Chlorhexidine MOUTHWASH 0.12%* 15 ML UDC TOPICAL SCH ×7 (01:42→23:53)
[2017-06-04] MEDS: Propofol* 100 ML IV SCH (02:47)
[2017-06-04 06:02] LABS: Venous Bicarbonate HCO3 24.4 mmol/L (24-28)
[2017-06-04 06:03] LABS: Hematocrit 31 % (35-47); Hemoglobin 10.1 g/dl (12.0-16.0); Mean Corpuscular HGB Conc 33 g/dl (31-36); Mean Corpuscular Hemoglobin 26 pg (27-31); Mean Corpuscular Volume 81 fL (80-97); Mean Platelet Volume 10 um3 (7.4-10.4); Red Blood Count 3.85 10^6/ul (4.0-5.4); Red Cell Distribution Width 16 % (10.5-15); White Blood Count 13.1 10^3/ul (3.5-10.8)
[2017-06-04] MEDS: fentaNYL* 50 MCG/ML 2 ML VIAL (100 MCG VIAL) IV SLOW PU PRN ×2 (06:06→15:19)
[2017-06-04 06:16] LABS: BUN/Creatinine Ratio 22.4 (8-20); Calcium 7.9 mg/dL (8.6-10.3); Direct Bilirubin 1.4 mg/dL (0.03-0.18); EGFR African American 42.8 (>60); EGFR Non-African American 33.2 (>60); Globulin 1.9 g/dL (2-4); Indirect Bilirubin 1.1 mg/dL (0.3-1.0); Magnesium 2.2 mg/dL (1.9-2.7); Phosphorus 3.2 mg/dL (2.5-5.0); Potassium 3.3 mmol/L (3.5-5.0); Total Bilirubin 2.5 mg/dL (0.2-1.0); Total Protein 4.9 g/dL (6.4-8.9)
--- NOTE | 2017-06-04 07:53 | RAD ---
HISTORY: Tube placement COMPARISONS: June 01, 2017 VIEWS: 2: frontal portable view of the chest at 12:24 AM FINDINGS: LINES AND TUBES: The endotracheal tube is noted with the tip overlying the trachea between the clavicles and the gilberto. A right internal jugular venous catheter is noted with the tip overlying the cavoatrial junction. A gastric tube is noted. The tip is just distal to the expected location of the GE junction. CARDIOMEDIASTINAL SILHOUETTE: The cardiac silhouette is enlarged. The cardiomediastinal silhouette is otherwise normal for portable technique. PLEURA: The costophrenic angles are sharp. No pleural abnormalities are noted. LUNG PARENCHYMA: The lungs are clear. ABDOMEN: The upper abdomen is clear. There is no subphrenic gas. BONES AND SOFT TISSUES: No bone or soft tissue abnormalities are noted. IMPRESSION: 1. LINES AND TUBES ABOVE. 2. CARDIOMEGALY.
--- NOTE | 2017-06-04 08:05 | RAD ---
HISTORY: Respiratory failure, anasarca COMPARISONS: June 03, 2017 VIEWS: 2: frontal portable view of the chest at 6:15 AM FINDINGS: LINES AND TUBES: An endotracheal tube is noted with the tip overlying the trachea between the clavicles and the gilberto. A gastric tube is noted. The tip is just distal to the expected location of the GE junction. A right internal jugular venous catheter is noted with the tip overlying the cavoatrial junction. CARDIOMEDIASTINAL SILHOUETTE: The cardiac silhouette is enlarged. The cardiomediastinal silhouette is otherwise normal for portable technique. PLEURA: The costophrenic angles are sharp. No pleural abnormalities are noted. LUNG PARENCHYMA: There is a mild diffuse reticular pattern with indistinct pulmonary vessels. ABDOMEN: The upper abdomen is clear. There is no subphrenic gas. BONES AND SOFT TISSUES: No bone or soft tissue abnormalities are noted. IMPRESSION: 1. LINES AND TUBES ABOVE. 2. CARDIOMEGALY. 3. MILD PULMONARY INTERSTITIAL EDEMA.
--- NOTE | 2017-06-04 09:23 | PN ---
Progress Note - Progress Note Date of Service: 06/04/17 Note: [facility] Progress Note On Propofol gtt...sedate Nurse questioning position of feed tube (FT) SBP 119 HR 81 reg UO OK I/Os slightly negative balance APRV mode FiO2 30 SpO2 100 Skin mo diaphoresis Sclerae anicteric, (+)Arcus, Pupils equal Oral mucosa pink Oral ETT and GT/FT Rt IJ TLC Lungs with good air entry, no wheezes Cor RRR no rub, 1/6 KATHERIN Abd mild distension, nontender, (+)BS camara Ext mild-mod edema WBC 13.1 Hgb 10.1 Plt 116 pH(v) 7.41 Lact 1.3 K 3.3 BUN/Creat 34/1.42 Pi 3.2 HCO3 24 Bili 2.5 AST 620 ALT 690 Alb 3.0 CXR some obscuration of medial portion retrocardiac space, ETT OK, Rt IJ Central line in place, GT just below GE junction per report IMP: Acute Resp Failure Encephalopathy...on lactulose S/P Acute 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...subsiding Mild Renal Insuff Mild hypokalemia Metabolic Acidosis with elevated lactate resolved Moderate Ao Stenosis Hx Diabetes PLAN: Push in GT ~8 inches and recheck position Hopefully resume feeds after verified to be in deeper position in stomach Keep HOB elevated Acid Peptic Supp Suctioning PRN DVT Prophyl..to add Lovenox once daily Assess patient off Propofol gtt Try CPAP+PSV once more awake Replete K Glycemic control PRN with Insulin Discussed by phone with son...reviewed latest labs especially renal and hepatic data Discussed with Nurse, Resp Tx, Nutrition, Pharm, and the rest of the ICU MultiDiscpl team T>35 min, [facility] services rendered
--- NOTE | 2017-06-04 09:46 | RAD ---
HISTORY: OG tube placement COMPARISONS: June 04, 2017 at 5:10 AM VIEWS: 1: frontal portable view of the chest at 9:15 AM FINDINGS: LINES AND TUBES: An endotracheal tube is noted overlying the trachea with the tip between the clavicles and the gilberto. A right internal jugular vein catheter is noted with the tip overlying the ureteral junction. A gastric tube is noted. The tip is at the expected location of the GE junction. CARDIOMEDIASTINAL SILHOUETTE: The cardiac silhouette is enlarged. The cardiomediastinal silhouette is otherwise normal for portable technique. PLEURA: The costophrenic angles are sharp. No pleural abnormalities are noted. LUNG PARENCHYMA: There is prominence of the central pulmonary vasculature. ABDOMEN: The upper abdomen is clear. There is no subphrenic gas. BONES AND SOFT TISSUES: No bone or soft tissue abnormalities are noted. IMPRESSION: 1. LINES AND TUBES ABOVE. 2. CARDIOMEGALY.
--- NOTE | 2017-06-04 13:51 | RAD ---
HISTORY: Confirm orogastric tube placement COMPARISONS: June 04, 2017 at 8:24 AM VIEWS: 1: frontal portable view of the chest at 1:30 PM FINDINGS: LINES AND TUBES: An endotracheal tube is noted with the tip overlying the trachea between the clavicles and the gilberto. A right internal jugular venous catheter is noted with the tip overlying the superior vena cava. A feeding tube is noted. The tip is below the [id number] the current examination, but is in a postpyloric position. CARDIOMEDIASTINAL SILHOUETTE: The cardiac silhouette is enlarged. The cardiomediastinal silhouette is otherwise normal for portable technique. PLEURA: The costophrenic angles are sharp. No pleural abnormalities are noted. LUNG PARENCHYMA: The lungs are clear. ABDOMEN: The upper abdomen is clear. There is no subphrenic gas. BONES AND SOFT TISSUES: No bone or soft tissue abnormalities are noted. IMPRESSION: 1. LINES AND TUBES ABOVE. 2. CARDIOMEGALY
[2017-06-04] MEDS: Enoxaparin(*) 40 MG/0.4 ML SYR SUBCUT SCH (14:48)
--- NOTE | 2017-06-04 16:53 | PN ---
Progress Note - Progress Note Date of Service: 06/04/17 - Gastroenterology Note: Patient seen and examined. Dobhoff was kinked overnight and had to be replaced. TF running at 25 cc/hr and tolerating. No emesis. Sedated and on vent. D/w RN. Had a loose bowel movement today without blood this morning. Remains off Levophed gtt for over 24 hours. Vital Signs: Temp Pulse Resp BP Pulse Ox 98.4 F 82 26 114/49 100 06/04/17 15:21 06/04/17 16:16 06/04/17 15:19 06/04/17 16:15 06/04/17 16:16 PHYSICAL EXAMINATION: GENERAL: Sedated with propofol gtt and on vent. HEENT: Dry MM, ETT in place. Dobhoff in place. CV: RRR. PULM: CTAB. 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 Less anasarca today. EXTREMITIES: Warm, +2 pitting edema in lower extremities B/L. NEURO: Unable to asses due to sedation. LABS: Laboratory Last Values WBC 13.1 10^3/ul (3.5-10.8) H 06/04/17 05:45 RBC 3.85 10^6/ul (4.0-5.4) L 06/04/17 05:45 Hgb 10.1 g/dl (12.0-16.0) L 06/04/17 05:45 Hct 31 % (35-47) L 06/04/17 05:45 MCV 81 fL (80-97) 06/04/17 05:45 MCH 26 pg (27-31) L 06/04/17 05:45 MCHC 33 g/dl (31-36) 06/04/17 05:45 RDW 16 % (10.5-15) H 06/04/17 05:45 Plt Count 116 10^3/ul (150-450) L 06/04/17 05:45 MPV 10 um3 (7.4-10.4) 06/04/17 05:45 Neut % (Auto) 82.7 % (38-83) 06/04/17 05:45 Lymph % (Auto) 7.0 % (25-47) L 06/04/17 05:45 [place] % (Auto) 9.9 % (1-9) H 06/04/17 05:45 Eos % (Auto) 0.1 % (0-6) 06/04/17 05:45 Baso % (Auto) 0.3 % (0-2) 06/04/17 05:45 Absolute Neuts (auto) 10.9 10^3/ul (1.5-7.7) H 06/04/17 05:45 Absolute Lymphs (auto) 0.9 10^3/ul (1.0-4.8) L 06/04/17 05:45 Absolute Monos (auto) 1.3 10^3/ul (0-0.8) H 06/04/17 05:45 Absolute Eos (auto) 0 10^3/ul (0-0.6) 06/04/17 05:45 Absolute Basos (auto) 0 10^3/ul (0-0.2) 06/04/17 05:45 Absolute Nucleated RBC 0.01 10^3/ul 06/04/17 05:45 Nucleated RBC % 0.1 06/04/17 05:45 INR (Anticoag Therapy) 1.42 (0.89-1.11) H 06/04/17 05:45 APTT 33.6 seconds (26.0-36.3) 06/01/17 17:25 Fibrinogen 111 mg/dL (110.8-404.3) 06/03/17 05:37 Patient Temperature Not Reportable 06/01/17 14:00 ABG pH 7.09 (7.35-7.45) L* 06/01/17 14:00 ABG pH (Temp Correct) Not Reportable 06/01/17 14:00 ABG pCO2 24 mmHg (35-45) L 06/01/17 14:00 ABG pCO2 (Temp Corrct Not Reportable 06/01/17 14:00 ABG pO2 232 mmHg (80-100) H 06/01/17 14:00 ABG pO2 (Temp Correct Not Reportable 06/01/17 14:00 ABG HCO3 8.6 mmol/L (19-31) L* 06/01/17 14:00 ABG O2 Saturation 98.8 % (95-98) H 06/01/17 14:00 ABG Base Excess -21.0 (-2.0-2.0) L 06/01/17 14:00 VBG pH 7.41 (7.33-7.43) 06/04/17 05:45 VBG pCO2 39 mmHg (41-51) L 06/04/17 05:45 VBG pO2 33 mmHg (35-45) L 06/04/17 05:45 VBG HCO3 24.4 mmol/L (24-28) 06/04/17 05:45 VBG O2 Saturation 66.8 % (70-80) L 06/04/17 05:45 VBG Base Excess 0.1 (0-4) 06/04/17 05:45 Respiration Rate Not Reportable 06/01/17 14:00 O2 Delivery Device Nrb 06/01/17 14:00 Ventilator Type Not Reportable 06/01/17 14:00 Vent Mode Not Reportable 06/01/17 14:00 FiO2 100 06/01/17 14:00 Inspiratory Time Not Reportable 06/01/17 14:00 PEEP Not Reportable 06/01/17 14:00 Pressure Support Not Reportable 06/01/17 14:00 Pressure Control Not Reportable 06/01/17 14:00 EPAP Not Reportable 06/01/17 14:00 IPAP Not Reportable 06/01/17 14:00 BiPAP Not Reportable 06/01/17 14:00 Sodium 130 mmol/L (133-145) L 06/04/17 05:45 Potassium 3.3 mmol/L (3.5-5.0) L 06/04/17 05:45 Chloride 96 mmol/L (101-111) L 06/04/17 05:45 Carbon Dioxide 24 mmol/L (22-32) 06/04/17 05:45 Anion Gap 10 mmol/L (2-11) 06/04/17 05:45 BUN 34 mg/dL (6-24) H 06/04/17 05:45 Creatinine 1.52 mg/dL (0.51-0.95) H 06/04/17 05:45 Est GFR ( Amer) 42.8 (>60) 06/04/17 05:45 Est GFR (Non-Af Amer) 33.2 (>60) 06/04/17 05:45 BUN/Creatinine Ratio 22.4 (8-20) H 06/04/17 05:45 Glucose 143 mg/dL (70-100) H 06/04/17 05:45 POC Glucose (mg/dL) 205 mg/dL (70-100) H 06/03/17 04:35 Lactic Acid 1.3 mmol/L (0.5-2.0) 06/04/17 05:45 Calcium 7.9 mg/dL (8.6-10.3) L 06/04/17 05:45 Ionized Calcium 3.78 mg/dL (4.65-5.28) L 06/02/17 05:36 Phosphorus 3.2 mg/dL (2.5-5.0) 06/04/17 05:45 Magnesium 2.2 mg/dL (1.9-2.7) 06/04/17 05:45 Total Bilirubin 2.50 mg/dL (0.2-1.0) H 06/04/17 05:45 Direct Bilirubin 1.40 mg/dL (0.03-0.18) H 06/04/17 05:45 Indirect Bilirubin 1.1 mg/dL (0.3-1.0) H 06/04/17 05:45 AST 620 U/L (13-39) H 06/04/17 05:45 ALT 690 U/L (7-52) H 06/04/17 05:45 Alkaline Phosphatase 129 U/L (34-104) H 06/04/17 05:45 Ammonia 59 mol/L (16-53) H 06/04/17 05:45 Lactate Dehydrogenase 5114 U/L (140-271) H 06/02/17 05:36 Total Creatine Kinase 252 U/L (10-223) H 06/01/17 14:10 Troponin I 0.07 ng/mL (<0.04) H* 06/01/17 22:09 B-Natriuretic Peptide > 4971 pg/mL (-100) H 06/01/17 14:10 Total Protein 4.9 g/dL (6.4-8.9) L 06/04/17 05:45 Albumin 3.0 g/dL (3.2-5.2) L 06/04/17 05:45 Globulin 1.9 g/dL (2-4) L 06/04/17 05:45 Albumin/Globulin Ratio 1.6 (1-3) 06/04/17 05:45 TSH 1.69 mcIU/mL (0.34-5.60) 06/01/17 14:10 Urine Color Yellow 06/01/17 16:05 Urine Appearance Clear 06/01/17 16:05 Urine pH 5.0 (5-9) 06/01/17 16:05 Ur Specific [place] 1.025 (1.010-1.030) 06/01/17 16:05 Urine Protein 3+(>=500 mg/dl) (Negative) H 06/01/17 16:05 Urine Ketones Negative (Negative) 06/01/17 16:05 Urine Blood Negative (Negative) 06/01/17 16:05 Urine Nitrate Negative (Negative) 06/01/17 16:05 Urine Bilirubin Negative (Negative) 06/01/17 16:05 Urine Urobilinogen Negative (Negative) 06/01/17 16:05 Ur Leukocyte Esterase Negative (Negative) 06/01/17 16:05 Urine WBC (Auto) Absent (Absent) 06/01/17 16:05 Urine RBC (Auto) Absent (Absent) 06/01/17 16:05 Ur Squamous Epith Cells Present (Absent) H 06/01/17 16:05 Amorphous Crystals Present (Absent) H 06/01/17 16:05 Urine Bacteria Absent (Absent) 06/01/17 16:05 Hyaline Casts Present (Absent) H 06/01/17 16:05 Urine Glucose Negative (Negative) 06/01/17 16:05 Urine Ascorbic Acid * (Negative) H 06/01/17 16:05 Salicylates < 2.50 mg/dL (<30) 06/01/17 14:10 Acetaminophen < 15 mcg/mL 06/01/17 14:10 Hepatitis A IgM Ab Nonreactive (Nonreactive) 06/01/17 22:09 Hep Bs Antigen Nonreactive (Nonreactive) 06/01/17 22:09 Hep B Core IgM Ab Nonreactive (Nonreactive) 06/01/17 22:09 Hepatitis C Antibody Nonreactive (Nonreactive) 06/01/17 22:09 Blood Type O Positive 06/01/17 17:25 Antibody Screen Negative 06/01/17 17:25 A/P: 80 female who presented with MOSF of unknown etiology at this time. GI was consulted for further evaluation of patient's acute liver failure. 1. Acute liver failure - improving. ~Unknown etiology at this time. ~May be secondary to medications (prescribed vs herbal supplements) vs toxins vs ischemia (may be a combination as well). ~Off levophed gtt > 48 hours. ~NAC x 48 hours was complete yesterday ~Acetaminophen and salicylate levels were normal on admission. ~Hepatitis panel was negative. Will check Hepatitis E. ~LFTs and INR are downtrending. Trend daily. ~Last platelet count was 116. ~Lactic acidosis is improving. ~Blood and urine cultures have been negative. ~Lactulose started for possible hepatic encephalopathy and is having bowel movements. May add Rifaximin 550 po BID when able. ~US revealed mild ascites. Spoke with substation electrician and will hold off on paracentesis for now as it's a minimal amount. ~CT revealed hepatomegaly and was negative for Budd-Chiari. ~Patient's son will visit patient's apartment to see is she may have ingested a toxin. ~Receiving TFs via Dobhoff for nutrition. 2. Respiratory Failure ~Intubated and sedated on propofol gtt. 3. Acute Kidney Injury - stabilizing. ~Likely multifactorial. ~Doubt HRS. ~Nephro following. Likely from ATN. ~Monitor kidney function. 4. Normocytic Anemia - stable. ~Likely multifactorial. ~No evidence of GI bleeding. ~On PPI daily for GI prophylaxis. 5. Leukocytosis - improving. ~Likely reactive. ~Infectious work-up has been negative thus far. Discussed with nursing staff, patient's son, and Dr. Castillo. Will follow closely. Please do not hesitate to contact us with any further questions or concerns. Florencia Stover D.O.
[2017-06-04] MEDS: Pantoprazole IV* 40 MG IV SCH (18:02)
[2017-06-05] MEDS: fentaNYL* 50 MCG/ML 2 ML VIAL (100 MCG VIAL) IV SLOW PU PRN (03:01)
[2017-06-05] MEDS: Chlorhexidine MOUTHWASH 0.12%* 15 ML UDC TOPICAL SCH ×5 (03:01→20:55)
[2017-06-05] MEDS: Propofol* 100 ML IV SCH (03:08)
[2017-06-05 05:49] LABS: Hematocrit 31 % (35-47); Hemoglobin 9.9 g/dl (12.0-16.0); Mean Corpuscular HGB Conc 33 g/dl (31-36); Mean Corpuscular Hemoglobin 27 pg (27-31); Mean Corpuscular Volume 82 fL (80-97); Mean Platelet Volume 9 um3 (7.4-10.4); Red Blood Count 3.75 10^6/ul (4.0-5.4); Red Cell Distribution Width 16 % (10.5-15); White Blood Count 12.3 10^3/ul (3.5-10.8)
[2017-06-05 05:50] LABS: Comments Flag Yes
[2017-06-05 06:00] LABS: Anion Gap 5 mmol/L (2-11); Blood Urea Nitrogen 28 mg/dL (6-24); CO2 Carbon Dioxide 28 mmol/L (22-32); Calcium 8.2 mg/dL (8.6-10.3); Chloride 98 mmol/L (101-111); EGFR African American 60.8 (>60); EGFR Non-African American 47.3 (>60); Glucose 185 mg/dL (70-100); Magnesium 2.4 mg/dL (1.9-2.7); Phosphorus 2.7 mg/dL (2.5-5.0); Potassium 3.3 mmol/L (3.5-5.0); Sodium 131 mmol/L (133-145)
[2017-06-05 07:03] LABS: Free T4 1.01 ng/dL (0.61-1.12)
[2017-06-05 07:06] LABS: Vitamin B12 > 1450 pg/mL (180-914)
[2017-06-05] MEDS ORDERED: Furosemide IV* 10 MG/ML 2 ML VIAL (20 MG) IV ONE (07:35)
[2017-06-05] MEDS: KCL 20 MEQ/100 ML IVPREMIX* 20 MEQ/100 ML BAG IV SCH ×2 (08:32→11:21)
[2017-06-05] MEDS: RiFAXimin* 550 MG TAB FEED TUBE SCH ×2 (08:33→20:55)
--- NOTE | 2017-06-05 08:50 | PN ---
Progress Note - Progress Note Date of Service: 06/05/17 Note: [facility] Progress Note On Propofol gtt overnight...sedate Placed Dobhoff type tube via nare into jejunum yesterday and feeds resumed SBP 121 HR 81 reg UO OK I/Os slightly negative balance again APRV mode FiO2 30 SpO2 99 Skin no diaphoresis Sclerae anicteric, (+)Arcus, Pupils equal FT in nare Oral mucosa pink Oral ETT Rt IJ TLC Lungs with good air entry, no wheezes Cor RRR no rub, 1/6 KATHERIN Abd mild distension, nontender, (+)BS camara Ext mild-mod edema WBC 12.3 Hgb 9.9 Plt 108 K 3.3 Na 131 BUN/Creat 28/1.1 Pi 2.7 Mg 2.4 Gluc 140-180 range NH4 56 IMP: Acute Resp Failure Encephalopathy...on lactulose...slow decline of NH4 S/P Acute 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...subsiding Mild Renal Insuff...essentially resolved Mild hypokalemia Moderate Ao Stenosis Hx Diabetes..mild hyperglycemia Coagulopathy...subsided Hyponatremia...gradually improving Anasarca Anemia...acceptable Hgb PLAN: Hold Propofol again today Assess mental status re weaning Once awake enough to go to CPAP+PSV Increase enteral feeds to 35 ml/hr Flush FT well after medications to avoid clogging of tube Add Rifaximin as recommended by GI..hopefully accelerate recovery/ resolution of any component of hepatic encephalopathy blunting mental status Keep HOB elevated Acid Peptic Supp Suctioning PRN DVT Prophyl..Lovenox once daily Replete K Lasix 20 mg IV x1 Glycemic control PRN with Insulin Discussed with son this AM Discussed with Nurse and Resp Tx T>35 min, [facility] services rendered
[2017-06-05] MEDS: Enoxaparin(*) 40 MG/0.4 ML SYR SUBCUT SCH (11:38)
[2017-06-05] MEDS: Pantoprazole IV* 40 MG IV SCH (17:06)
[2017-06-06] MEDS: Chlorhexidine MOUTHWASH 0.12%* 15 ML UDC TOPICAL SCH ×6 (00:24→20:05)
[2017-06-06] MEDS: fentaNYL* 50 MCG/ML 2 ML VIAL (100 MCG VIAL) IV SLOW PU PRN ×8 (00:24→23:01)
[2017-06-06 06:31] LABS: Hematocrit 31 % (35-47); Hemoglobin 9.9 g/dl (12.0-16.0); Mean Corpuscular HGB Conc 32 g/dl (31-36); Mean Corpuscular Hemoglobin 26 pg (27-31); Mean Corpuscular Volume 82 fL (80-97); Mean Platelet Volume 10 um3 (7.4-10.4); Red Blood Count 3.77 10^6/ul (4.0-5.4); Red Cell Distribution Width 16 % (10.5-15); White Blood Count 11.7 10^3/ul (3.5-10.8)
[2017-06-06 06:37] LABS: Add Diff/Slide Review? Slide Review Added; Comments Flag Yes
[2017-06-06 06:44] LABS: Albumin 2.8 g/dL (3.2-5.2); BUN/Creatinine Ratio 22.5 (8-20); Calcium 8.1 mg/dL (8.6-10.3); Direct Bilirubin 1.1 mg/dL (0.03-0.18); EGFR African American 67.8 (>60); EGFR Non-African American 52.7 (>60); Globulin 2.3 g/dL (2-4); Indirect Bilirubin 0.9 mg/dL (0.3-1.0); Magnesium 2.4 mg/dL (1.9-2.7); Phosphorus 2.5 mg/dL (2.5-5.0); Potassium 3.9 mmol/L (3.5-5.0); Total Protein 5.1 g/dL (6.4-8.9)
[2017-06-06 07:13] LABS: Hypochromasia 2+
[2017-06-06 07:14] LABS: Target Cells 1+
[2017-06-06] MEDS: RiFAXimin* 550 MG TAB FEED TUBE SCH ×2 (08:15→21:28)
--- NOTE | 2017-06-06 08:55 | PN ---
Progress Note - Progress Note Date of Service: 06/06/17 Note: [facility] Progress Note Off Propofol since ytdy One dose Fentanyl ~3 AM With combination of loud voice and firm stimulation will open eyes...stayed awake briefly...nodded head that she understood me, denied pain...rapidly fell asleep Moves all 4 extrems to noxious...opens eyes with startled/anguished look...rapidly falls asleep again Nurses report urine concentrated this AM...low hourly volume so far SBP 117 HR 90 reg UO OK I/Os slightly negative balance again Weight down FiO2 30 PEEP 5 SpO2 98 Skin no diaphoresis Sclerae anicteric, (+)Arcus, Pupils equal FT in nare Oral mucosa pink Oral ETT Rt IJ TLC Lungs with good air entry, no wheezes Cor RRR no rub, 1/6 KATHERIN Abd soft, nontender, (+)BS camara Ext mild-mod edema WBC 11.7 Hgb 9.9 Plt 118 INR 1.1 K 3.9 Na 137 BUN/Creat 23/1.0 Mg 2.4 Pi 2.5 Gluc 221 AST 104 ALT 290 Bili 2.0 Alb 2.8 TSH 0.4 fT4 1.0 B12>1450 IMP: Acute Resp Failure...mental status remains main barrier to weaning with eye to extubation Encephalopathy.....slowly subsiding...on lactulose and Rifaximin S/P Acute 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...subsiding Mild Renal Insuff...essentially resolved Mild hypokalemia...resolved Concentrated urine this AM and a little oliguric....suspect a little hypovolemia Moderate Ao Stenosis Hx Diabetes....hyperglycemia progressing as feed intake increased Coagulopathy...esentially resolved Hyponatremia....essentially resolved Anasarca...edema less tense Anemia...acceptable Hgb Thrombocytopenia...stable PLAN: Ongoing assessment of mental status Check NH4 again Increase enteral feeds to 40 ml/hr Add water flushes to feed regimen...200 ml Q6 hrs LR 500 ml IV x1 this AM Flush FT well after medications to avoid clogging of tube Lactulose + Rifaximin Check FS glucose Q 6 hrs Insulin Slide Scale Q 6 hrs Keep HOB elevated Acid Peptic Supp Suctioning PRN DVT Prophyl....SCDs Discussed with faby this AM Discussed with Nurses and Pharmacy T>35 min, [facility] services rendered
[2017-06-06] MEDS ORDERED: Dextrose 50% Syringe 50 ML* 25 GM/50 ML SYRINGE IV PUSH PRN (08:58)
[2017-06-06] MEDS ORDERED: Lactated Ringers 500 ml BAG* 500 ML IV SCH (09:00)
[2017-06-06] MEDS: Insulin LISPRO* 1 UNITS UNIT SUBCUT SCH ×2 (12:11→18:12)
[2017-06-06] MEDS: Pantoprazole IV* 40 MG IV SCH (18:21)
[2017-06-07] MEDS: Chlorhexidine MOUTHWASH 0.12%* 15 ML UDC TOPICAL SCH ×3 (00:47→08:45)
[2017-06-07] MEDS: Insulin LISPRO* 1 UNITS UNIT SUBCUT SCH ×4 (00:47→18:24)
[2017-06-07] MEDS: fentaNYL* 50 MCG/ML 2 ML VIAL (100 MCG VIAL) IV SLOW PU PRN ×4 (00:48→18:33)
[2017-06-07 06:12] LABS: Hematocrit 30 % (35-47); Hemoglobin 9.7 g/dl (12.0-16.0); Mean Corpuscular HGB Conc 32 g/dl (31-36); Mean Corpuscular Hemoglobin 26 pg (27-31); Mean Corpuscular Volume 82 fL (80-97); Mean Platelet Volume 9 um3 (7.4-10.4); Red Blood Count 3.68 10^6/ul (4.0-5.4); Red Cell Distribution Width 16 % (10.5-15); White Blood Count 13.4 10^3/ul (3.5-10.8)
[2017-06-07 06:15] LABS: Comments Flag Yes
[2017-06-07 06:32] LABS: BUN/Creatinine Ratio 27.7 (8-20); Calcium 8.1 mg/dL (8.6-10.3); EGFR Non-African American 66.8 (>60); Magnesium 2.5 mg/dL (1.9-2.7); Phosphorus 2.7 mg/dL (2.5-5.0); Potassium 4.2 mmol/L (3.5-5.0)
--- NOTE | 2017-06-07 08:00 | RAD ---
Indication: Respiratory failure. Single frontal view of the chest performed at 0632 hours was reviewed. Comparison is made with previous exam dated June 04, 2017. No mediastinal shift is noted. Heart is of normal size and configuration. ET tube in appropriate location. The T3 level. Central line is in place. IMPRESSION: ET TUBE AND CENTRAL LINE IN PLACE.
[2017-06-07] MEDS: RiFAXimin* 550 MG TAB FEED TUBE SCH (09:05)
--- NOTE | 2017-06-07 11:07 | PN ---
Critical Care Services: Patient responded appropriately to verbal commands this AM, so was weaned and extubated. She has done well since extubation on O2 by aerosol mask. Is complaining of pain in right hip area. Vital Signs: Temp Pulse Resp BP SpO2 FiO2 98 F 108 28 150/80 100 100 Physical Exam: Gen:Mildly agitated but responds to verbal commands. HEENT:Pupils midposition and reactive Lungs: occasional rhonchus. No crackles or wheezes. Abdomen:Not distended. Extremities:No cyanosis or edema. Neuro:Moving all extremities. No apparent neuro deficit. Fluid Balance (Past 24 Hours): 06/07/17 06:59 Intake Total 2413 Output Total 575 Balance +1838 Weight 152 lb Intake: IV Fluids 780 LR 500 NS (0.9%) 280 IVPB NS (0.9%) Medicated IV CC - Propofol/Diprivan Oral 0 Tube Feeding 913 Tube Feeding Flush Amount 600 NG Tube Irrigate Amount 120 Output: [place] 575 Other: Date of Last Bowel 06/06/17 Movement # Bowel Movements 4 Estimated Stool Amount Medium Labs: 06/07/17 06/07/17 06/07/17 05:50 05:50 05:57 WBC 13.4 H Hgb 9.7 L Hct 30 L MCV 82 Plt Count 126 L MPV 9 Sodium 136 Potassium 4.2 Chloride 102 Carbon Dioxide 30 BUN 23 Creatinine 0.83 Glucose 193 H POC Glucose (mg/dL) 224 H Calcium 8.1 L Phosphorus 2.7 Magnesium 2.5 NOTE: Serum ammonia 54 yesterday. Studies: None today. Nutrition: Tube feedings Impression: 1. Acute liver failure continues to resolve. Etiology unclear. 2. Right hip/lower back pain - source unclear. 3. Poor glycemic control Plan: 1. Swallowing evaluation before starting oral feedings. 2. X-ray of right hip if pain continues. 3. Repeat ammonia today - d/c lactulose and rifaximin when ammonia in normal range. 4. Adjust sliding-scale insulin regimen. I spoke with the patient's son (a carbon blocks press operator on staff at [facility]) about current condition and plans for further care. Critical Care Time: 45 minutes (not including time for extubation and time spent with the son).
[2017-06-07] MEDS: Pantoprazole IV* 40 MG IV SCH (18:13)
[2017-06-07] MEDS ORDERED: Analgesic BALM* 114 GM TOPICAL PRN (20:30)
[2017-06-07] MEDS: LORazepam INJ* 2 MG/ML 1 ML VIAL IV PUSH PRN (20:37)
--- NOTE | 2017-06-07 21:37 | RAD ---
INDICATION: Orogastric tube placement. COMPARISON: Comparison is made with a prior study of the same date from approximately 15 hours earlier. TECHNIQUE: A portable view of the chest was obtained. FINDINGS: There is a central venous catheter present on the right side entering from the right jugular approach. The catheter tip projects overlying the region of the superior vena cava. There is an oral gastric tube present. The catheter tip projects in the left upper quadrant in the region of the gastroesophageal junction. The heart is moderately enlarged and unchanged. There is mild prominence of the interstitial markings which have decreased most consistent with congestive heart failure. IMPRESSION: 1. STATUS POST OROGASTRIC TUBE PLACEMENT. THE CATHETER TIP PROJECTS OVERLYING THE REGION OF THE GASTROESOPHAGEAL JUNCTION. 2. FINDINGS SUGGESTIVE OF CONGESTIVE HEART FAILURE SLIGHTLY IMPROVED.
[2017-06-07] MEDS: Morphine INJ* 4 MG/ML 1 ML CARPUJECT IV PRN (23:54)
[2017-06-08] MEDS: Insulin LISPRO* 1 UNITS UNIT SUBCUT SCH ×4 (00:03→18:41)
[2017-06-08] MEDS: fentaNYL* 50 MCG/ML 2 ML VIAL (100 MCG VIAL) IV SLOW PU PRN (01:00)
[2017-06-08] MEDS: Morphine INJ* 4 MG/ML 1 ML CARPUJECT IV PRN ×2 (04:12→20:02)
[2017-06-08 05:51] LABS: Hematocrit 32 % (35-47); Hemoglobin 9.9 g/dl (12.0-16.0); Mean Corpuscular HGB Conc 31 g/dl (31-36); Mean Corpuscular Hemoglobin 26 pg (27-31); Mean Corpuscular Volume 83 fL (80-97); Mean Platelet Volume 9 um3 (7.4-10.4); Red Blood Count 3.83 10^6/ul (4.0-5.4); Red Cell Distribution Width 16 % (10.5-15); White Blood Count 13.5 10^3/ul (3.5-10.8)
[2017-06-08 06:00] LABS: BUN/Creatinine Ratio 34.2 (8-20); Calcium 8.6 mg/dL (8.6-10.3); EGFR African American 99.7 (>60); EGFR Non-African American 77.5 (>60); Potassium 4.6 mmol/L (3.5-5.0)
[2017-06-08 10:41] LABS: Direct Bilirubin 0.8 mg/dL (0.03-0.18); Globulin 2.4 g/dL (2-4); Indirect Bilirubin 0.9 mg/dL (0.3-1.0); Total Bilirubin 1.7 mg/dL (0.2-1.0); Total Protein 5.4 g/dL (6.4-8.9)
--- NOTE | 2017-06-08 12:50 | PN ---
Critical Care Services: Has done well since extubation - now oxygenating well without supplemental O2. LFTs continue to improve, off lactulose and rifaximin. However, she failed the swallowing test yesterday. Vital Signs: Temp Pulse Resp BP SpO2 FiO2 98.6 F 100 23 140/63 92 21 Physical Exam: Gen:Somnolent but arousable HEENT:oropharynx clear. Lungs: Occasional coarse rhonchi Abdomen: Distended. Bowel sounds present Extremities: No cyanosis or edema. Neuro: No apparent focal deficits. Fluid Balance (Past 24 Hours): 06/08/17 06:59 Intake Total 1692.2 Output Total 500 Balance +1192.2 Weight 149 lb Intake: IV Fluids 267.2 LR NS (0.9%) 267.2 Oral 5 Tube Feeding 820 Tube Feeding Flush Amount 600 NG Tube Irrigate Amount Output: [place] 500 Other: Date of Last Bowel 06/07/17 Movement # Bowel Movements 2 Estimated Stool Amount Labs: 06/07/17 12:37 Ammonia 42 06/08/17 06/08/17 05:28 05:28 WBC 13.5 H Hgb 9.9 L Hct 32 L Plt Count 163 Sodium 138 Potassium 4.6 Chloride 102 Carbon Dioxide 32 BUN 25 H Creatinine 0.73 Glucose 142 H 06/08/17 09:45 Total Bilirubin 1.70 H Direct Bilirubin 0.80 H Indirect Bilirubin 0.9 AST 49 H ALT 162 H Alkaline Phosphatase 145 H Ammonia Total Protein 5.4 L Albumin 3.0 Studies: None today Nutrition: Tube feedings Impression: 1. Acute liver failure has resolved, but there is still enzyme evidence of hepatocellular injury. 2. Difficulty swallowing most likely a residua from the intubation and hepatic encephalopathy (which has resolved). Plan: 1. Will continue enteral tube feedings until we can safely start oral feedings. 2. Monitor liver enzymes. 3. Transfer out of ICU today.
[2017-06-08] MEDS ORDERED: Docusate LIQ* 100 MG/10 ML UDC G TUBE PRN (18:00)
[2017-06-08] MEDS ORDERED: Magnesium Hydroxide LIQ* 30 ML UDC NG TUBE PRN (18:00)
[2017-06-08] MEDS: LORazepam INJ* 2 MG/ML 1 ML VIAL IV PUSH PRN (18:32)
[2017-06-08 18:41] LABS: Mitochondria M2 Antibody <0.1 U
[2017-06-08] MEDS ORDERED: Morphine INJ* 2 MG/ML 1 ML SYRINGE (TWO MG - NEW SYRINGE VERSION) IV ONE (22:00)
[2017-06-08] MEDS ORDERED: Haloperidol INJ IV/IM* 5 MG/ML AMP IV SLOW PU ONE (23:12)
[2017-06-08] MEDS ORDERED: NS 0.9% 1000 ML* 1,000 ML IV SCH (23:15)
[2017-06-09] MEDS: Insulin LISPRO* 1 UNITS UNIT SUBCUT SCH ×4 (00:02→17:48)
--- NOTE | 2017-06-09 05:30 | PN ---
Progress Note - Progress Note Date of Service: 06/09/17 Note: Contacted by patient's son concerned re: confusion. He was concerned about the cessation of lactulose & Rifaxamin. I explained that her ammonia level had normalized. He had spoken with Marbella Caceres MD neurology who reportedly had informed him that there could be ongoing encephalopathy. I advised I would give a dose of lactulose tonight and he should discuss this with the treating physician in the AM. I had actually spoken to Dr Caceres regarding Mrs Everett who didn't mention lactulose, but felt risperidone would be a good option. As she has failed a swallowing evaluation, haloperidol 2.5mg IV was ordered. Unfortunately, she dislodged her NG tube prior to its effect and so this was required to be replaced in order to restart her feedings. pCXR confirmed placement and once it was in an order for 15cc lactulose x1 was given.
--- NOTE | 2017-06-09 07:57 | RAD ---
HISTORY: NG tube placement COMPARISONS: June 07, 2017 VIEWS: 1: frontal portable view of the chest at 3:19 AM FINDINGS: LINES AND TUBES: A gastric tube is noted, with the tip in the left upper quadrant in a prepyloric position.. There is been interval removal of the right internal jugular venous catheter. CARDIOMEDIASTINAL SILHOUETTE: The cardiac silhouette is enlarged. The cardiomediastinal silhouette is otherwise normal for portable technique. PLEURA: The costophrenic angles are sharp. No pleural abnormalities are noted. LUNG PARENCHYMA: The lungs are clear. ABDOMEN: The upper abdomen is clear. There is no subphrenic gas. BONES AND SOFT TISSUES: No bone or soft tissue abnormalities are noted. IMPRESSION: CARDIOMEGALY. LINES AND TUBES ABOVE.
--- NOTE | 2017-06-09 08:07 | RAD ---
HISTORY: NG tube placement COMPARISONS: June 09, 2017 VIEWS: 1: frontal portable view of the chest at 6:51 AM FINDINGS: LINES AND TUBES: A gastric tube is noted, with the tip in the region of the pylorus.. CARDIOMEDIASTINAL SILHOUETTE: The cardiac silhouette is enlarged. The cardiomediastinal silhouette is otherwise normal for portable technique. PLEURA: The costophrenic angles are sharp. No pleural abnormalities are noted. LUNG PARENCHYMA: There is a diffuse reticular pattern with indistinct pulmonary vessels. ABDOMEN: The upper abdomen is clear. There is no subphrenic gas. BONES AND SOFT TISSUES: No bone or soft tissue abnormalities are noted. IMPRESSION: 1. LINES AND TUBES ABOVE. 2. CARDIOMEGALY WITH PULMONARY INTERSTITIAL EDEMA
[2017-06-09] MEDS ORDERED: Haloperidol INJ IV/IM* 5 MG/ML AMP IV SLOW PU PRN (08:20)
[2017-06-09 09:39] LABS: Albumin 3.2 g/dL (3.2-5.2); BUN/Creatinine Ratio 37.8 (8-20); Calcium 8.9 mg/dL (8.6-10.3); Direct Bilirubin 1.9 mg/dL (0.03-0.18); EGFR Non-African American 55.2 (>60); Globulin 2.8 g/dL (2-4); Indirect Bilirubin 1.7 mg/dL (0.3-1.0); Total Bilirubin 3.6 mg/dL (0.2-1.0)
[2017-06-09 09:43] LABS: Hematocrit 32 % (35-47); Hemoglobin 10.1 g/dl (12.0-16.0); Mean Corpuscular HGB Conc 31 g/dl (31-36); Mean Corpuscular Hemoglobin 26 pg (27-31); Mean Corpuscular Volume 82 fL (80-97); Mean Platelet Volume 10 um3 (7.4-10.4); Red Blood Count 3.94 10^6/ul (4.0-5.4); Red Cell Distribution Width 16 % (10.5-15)
[2017-06-09 09:45] LABS: Potassium 5.2 mmol/L (3.5-5.0)
[2017-06-09] MEDS ORDERED: Sodium Polystyrene ORAL.SOL* 15 GM/60 ML BTL FEED TUBE ONE (11:32)
--- NOTE | 2017-06-09 11:56 | PN ---
Subjective Date of Service: 06/09/17 Interval History: Pt pulled out her NG 3 times last night and just attempted to do it again. restless, no following commands Objective Active Medications: Albuterol/Ipratropium (Duoneb (Albuterol 2.5 Mg/Ipratropium 0.5 Mg)) 1 neb INH Q4H PRN PRN Reason: SOB/WHEEZING Dextrose (D50w Syringe 50 Ml*) 12.5 gm IV PUSH .FOR FS < 60 - SS PRN PRN Reason: FS < 60 Docusate Sodium (Colace Liq*) 100 mg G TUBE BID PRN PRN Reason: CONSTIPATION Haloperidol Lactate (Haldol Inj Iv/Im*) 2.5 mg IV SLOW PU Q12H PRN PRN Reason: AGITATION Famotidine 20 mg/ Sodium (Chloride) 102 mls @ 408 mls/hr IVPB DAILY MEGHA Last Admin: 06/09/17 10:16 Dose: 408 mls/hr Sodium Chloride (Ns 0.9% 1000 Ml*) 1,000 mls @ 75 mls/hr IV PER RATE MEGHA Last Admin: 06/08/17 23:39 Dose: 75 mls/hr Insulin Human Lispro (Humalog*) 0 units SUBCUT FS Q6 ICU MEGHA PRN Reason: Protocol Last Admin: 06/09/17 06:18 Dose: Not Given Lorazepam (Ativan Inj*) 0.25 mg IV PUSH Q8H PRN PRN Reason: ANXIETY Last Admin: 06/08/17 18:32 Dose: 0.25 mg Magnesium Hydroxide (Milk Of Magnesia Liq*) 30 ml NG TUBE Q6H PRN PRN Reason: CONSTIPATION Morphine Sulfate (Morphine Inj (Syringe)*) 1 mg IV Q4H PRN PRN Reason: PAIN Last Admin: 06/08/17 20:02 Dose: 1 mg Multi-Ingredient Liniment/Rub (Conor Barron*) 1 applic TOPICAL TID PRN PRN Reason: MUSCLE PAIN Vital Signs 06/08/17 06/08/17 06/08/17 12:00 12:01 12:30 Temperature 98.6 F Pulse Rate 100 100 104 Respiratory 22 23 28 Rate Blood Pressure 140/63 (mmHg) O2 Sat by Pulse 94 92 92 Oximetry 06/08/17 06/08/17 06/08/17 12:31 13:00 13:01 Temperature Pulse Rate 106 102 101 Respiratory 28 31 36 Rate Blood Pressure 145/65 145/60 (mmHg) O2 Sat by Pulse 91 93 91 Oximetry 06/08/17 06/08/17 06/08/17 13:30 14:00 14:01 Temperature Pulse Rate 104 102 103 Respiratory 25 21 24 Rate Blood Pressure 142/67 144/60 (mmHg) O2 Sat by Pulse 92 92 92 Oximetry 06/08/17 06/08/17 06/08/17 15:40 18:15 18:32 Temperature 98.2 F 97.4 F Pulse Rate 114 120 Respiratory 16 30 26 Rate Blood Pressure 161/60 146/57 (mmHg) O2 Sat by Pulse 94 93 Oximetry 06/08/17 06/08/17 06/08/17 19:32 20:02 21:02 Temperature Pulse Rate Respiratory 28 32 30 Rate Blood Pressure (mmHg) O2 Sat by Pulse Oximetry 06/08/17 06/08/17 06/09/17 21:45 23:14 02:42 Temperature 98.1 F Pulse Rate 134 132 Respiratory 32 18 20 Rate Blood Pressure 135/73 (mmHg) O2 Sat by Pulse 91 92 Oximetry 06/09/17 06/09/17 03:47 07:28 Temperature 97.4 F 97.8 F Pulse Rate 109 104 Respiratory 16 17 Rate Blood Pressure 120/57 100/48 (mmHg) O2 Sat by Pulse 100 93 Oximetry Oxygen Devices in Use Now: None Appearance: 77 yo f in nAd, restless pulling at lines, not following commands, nonverbal Eyes: No Scleral Icterus, PERRLA Ears/Nose/Mouth/Throat: NL Teeth, Lips, Gums, - - dry mucosa Respiratory: Symmetrical Chest Expansion and Respiratory Effort, - - dry crackles at b/l bases Cardiovascular: NL Sounds; No Murmurs; No JVD, RRR Abdominal: - - distended, soft, NT, BS+ Lymphatic: No Cervical Adenopathy Extremities: No Edema Skin: No Nodules or Sclerosis Neurological: NL Muscle Strength and Tone Result Diagrams: 06/09/17 09:09 06/09/17 09:09 Additional Lab and Data: Lab Results 06/01/17 Range/Units 14:00 Patient Temperature Not Reportable ABG pH Pending ABG pH (Temp Correct) Pending ABG pCO2 Pending ABG pCO2 (Temp Corrct Pending ABG pO2 Pending ABG pO2 (Temp Correct Pending ABG HCO3 Pending ABG O2 Saturation Pending ABG Base Excess Pending Respiration Rate Not Reportable O2 Delivery Device Nrb Ventilator Type Not Reportable Vent Mode Not Reportable FiO2 100 Inspiratory Time Not Reportable PEEP Not Reportable Pressure Support Not Reportable Pressure Control Not Reportable EPAP Not Reportable IPAP Not Reportable BiPAP Not Reportable Microbiology and Other Data: Microbiology 06/06/17 18:30 Stool Occult Blood (TERELL) - Final Stool 06/01/17 17:25 Aerobic Blood Culture - Final Blood Line Micrococcus Luteus/Lylae Anaerobic Blood Culture - Final No Growth Day 5 Blood Culture - Final Blood MRSA/MSSA (PCR) - Final Mrsa Negative S.aureus Negative 06/01/17 19:04 Nasal Screen MRSA (PCR)(TERELL) - Final Nasal Mrsa Negative Assess/Plan/Problems-Billing Assessment: 77 yo f with h/o uterine leyomyoma presented with metabolic acidosis sand respiratory failure due to liver failure/necrosis - Patient Problems (1) Acute liver failure Comment: with suspected liver necrosis. suspected toxin use, unknown source LFT improved, now slightly worse in 24h will ask GI to see (2) Dysphagia Comment: failed swallow again due to delirium D/c NG. pt keeps on pulling on it and that makes her more agitated. she may need PPN (3) Encephalopathy acute Comment: post ICU/critial illness will consult neurology Use intermittent Haldol Limit restarints and tubes(d/c'd NG and camara) (4) Acute renal failure Comment: resolved (5) Hyperammonemia Comment: ammonia WNL on 06/07/17 will recheck it in AM (6) DVT prophylaxis Comment: son requested no heparin or lovenox Status and Disposition: inpatient
[2017-06-09] MEDS ORDERED: D5NS 0.9% 1000 ML BAG* 1,000 ML IV SCH (13:00)
[2017-06-09] MEDS: Haloperidol INJ IV/IM* 5 MG/ML AMP IV SLOW PU SCH (21:00)
--- NOTE | 2017-06-09 21:42 | CONS ---
NEUROLOGY CONSULTATION: DATE OF CONSULTATION: 06/09/17 REFERRING PROVIDER: Dr. Marie. LOCATION: She is an inpatient in room 402. CHIEF COMPLAINT: Delirium, liver failure. HISTORY OF PRESENT ILLNESS: Mee Everett is a 77-year-old woman, who presented to the emergency room on 06/01/17 with acute liver failure. She had been becoming anxious and developed some right upper quadrant pain and was in the process of getting her CAT scan of upper abdomen. She became agitated, anxious, and diaphoretic in the CAT scanner and ended up in the emergency room. She was severely acidotic with markedly elevated liver enzymes and hyperammonemia. Ultimately, she was intubated and was intubated for 5 or 6 days in the intensive care unit. She was treated with lactulose and fluid resuscitation and her ammonia gradually came down and liver enzymes improved. She was extubated 2 days ago. Since being extubated, she has been very anxious and agitated and has pulled up multiple lines. She was started on haloperidol 2.5 mg q.2 hours p.r.n. last night and she has calmed down quite a bit. She has slept quite a bit today. When I stopped by this afternoon about 2 p.m., she was sleeping and I spoke with Dr. Marie and we did let her sleep until this evening when I reevaluated. Her son, Dr. Donald Everett, is present. She uses a number of supplements, but the same supplements that she has been taking for 2 years. She has had a GI consultation with Dr. Stover and it was felt she either had an ischemic or toxic hepatic injury, although no specific toxins have been identified. PAST MEDICAL HISTORY: Notable for uterine leiomyoma for which she had declined surgery. MEDICATIONS AT HOME: Included an antacid I believe famotidine and apparently very briefly on fluoxetine a week or two before hospitalization. ALLERGIES: She is listed as having an allergy to PENICILLIN. SOCIAL HISTORY: She is not an alcohol drinker. There is no family history of liver disease. PHYSICAL EXAMINATION: She is lethargic, but arouses to voice particularly of her son. Recent temperature is 97.4 orally, blood pressure 131/55, heart rate about 100. She has a grade 2/6 early systolic murmur, loudest at the upper right sternal border, but present in the left sternal border as well. Neck is supple without meningismus. Her sclerae are slightly icteric. Oral mucosa is moist. There are no cervical bruits auscultated. Neurologically, she is lethargic, but nods her head appropriately and responds to voice at times. She is able to open her eyes and visually track, but has poor attention and concentration. I do not see any sustained nystagmus. Pupils react equally from about 3.5 down to about 2.5 mm. Funduscopic exam with a blue light reveals sharp discs. Facial musculature symmetric with bilateral facial dyskinesis, but somewhat significant or sometimes jaw clinching pattern. Motor exam reveals restlessness. There is no rigidity in the limbs. There is no asterixis in the extended wrist on the right. There is no myoclonus noted either. Plantar responses are flexor. She follows commands when stimulated. She moves either leg to command and holds her hand up to command. She denies headache. She states she is very sleepy. LABORATORY DATA/DIAGNOSTIC DATA: Notable for negative DANIEL on 06/06/17, negative hepatitis B, C, E, and A antibodies. Tox screen for salicylates and acetaminophen were negative on admission. Chemistries notable for sodium of 112 when she was first admitted, up to 129 by 10 hours later. Most recently 139. Glucose had been persistently elevated, being 184 when she first was admitted and 174 earlier today. Calcium was low when she first came in and was hydrated and was down to 5.6, but has come up to normal at 8.9. AST today has bumped back up again to 1022 where it was 49 yesterday, it peaked at 4099 on . ALT likewise has bumped up to 378 today, 162 yesterday, peaked at 1474 on 06/02/17. Ammonia level was 42 on 06/07/17, peaked at 148 on 06/02/17. Total bilirubin is elevated at 3.6. She has a normal TSH and vitamin B12 at admission time. Blood gas when she first came in was pH of 7.27, pO2 was 38 initially and was low as 20 on 06/01/17. Liver ultrasound on 06/02/17 revealed gallbladder wall thickening and ascites. IMPRESSION: Agitated delirium following hepatic encephalopathy and complicated by severe acidosis, hyponatremia, and coagulopathy. I should note her INR was up to 3.98 on 06/02/17 and when last checked on 06/06/17 was down to 1.14. Also her platelet count dropped to 101 on 06/02/17 and is back up to 201. I recommend that we obtain an EEG tomorrow to further assess degree of encephalopathy, a CT scan of the brain to rule out an intracranial hemorrhage, and repeat her ammonia level. I think Haldol at 2.5 mg every 12 hours as needed seems to be working and I would recommend checking a 12-lead EKG again tomorrow to follow her QT interval. I will follow her along with you. [id number]/[facility] #: [id number] MTDD
--- NOTE | 2017-06-09 22:10 | PN ---
Progress Note - Progress Note Date of Service: 06/09/17 Note: Received a call from Barbara Cruz MD news reporter concerned re: rapidly escalating liver enzymes over the previous 24h w/ recurrence of her encephalopathy. Review of labs certainly gives high concern for repeat liver insult, suspect auto- immune vs ischemic. Recheck labs ordered, pending, & once resulted will discuss with son & decide further management. Laboratory Results - last 24 hr 06/08/17 06/08/17 06/08/17 18:05 18:11 23:59 WBC RBC Hgb Hct MCV MCH MCHC RDW Plt Count MPV Neut % (Auto) Lymph % (Auto) [facility] % (Auto) Eos % (Auto) Baso % (Auto) Absolute Neuts (auto) Absolute Lymphs (auto) Absolute Monos (auto) Absolute Eos (auto) Absolute Basos (auto) Absolute Nucleated RBC Nucleated RBC % VBG pH VBG pCO2 VBG pO2 VBG HCO3 VBG O2 Saturation VBG Base Excess Sodium Potassium Chloride Carbon Dioxide Anion Gap BUN Creatinine Est GFR ( Amer) Est GFR (Non-Af Amer) BUN/Creatinine Ratio Glucose POC Glucose (mg/dL) 189 H 183 H 101 H Lactic Acid Calcium Total Bilirubin Direct Bilirubin Indirect Bilirubin AST ALT Alkaline Phosphatase Total Protein Albumin Globulin Albumin/Globulin Ratio 06/09/17 06/09/17 06/09/17 06:16 09:09 09:09 WBC 16.0 H RBC 3.94 L Hgb 10.1 L Hct 32 L MCV 82 MCH 26 L MCHC 31 RDW 16 H Plt Count 201 MPV 10 Neut % (Auto) 85.2 H Lymph % (Auto) 4.2 L [facility] % (Auto) 9.8 H Eos % (Auto) 0 Baso % (Auto) 0.8 Absolute Neuts (auto) 13.7 H Absolute Lymphs (auto) 0.7 L Absolute Monos (auto) 1.6 H Absolute Eos (auto) 0 Absolute Basos (auto) 0.1 Absolute Nucleated RBC 0.01 Nucleated RBC % 0.1 VBG pH VBG pCO2 VBG pO2 VBG HCO3 VBG O2 Saturation VBG Base Excess Sodium 139 Potassium 5.2 H Chloride 103 Carbon Dioxide 24 Anion Gap 12 H BUN 37 H Creatinine 0.98 H Est GFR ( Amer) 71.0 Est GFR (Non-Af Amer) 55.2 BUN/Creatinine Ratio 37.8 H Glucose 126 H POC Glucose (mg/dL) 133 H Lactic Acid Calcium 8.9 Total Bilirubin 3.60 H D Direct Bilirubin 1.90 H Indirect Bilirubin 1.7 H AST 1022 H ALT 378 H Alkaline Phosphatase 130 H Total Protein 6.0 L Albumin 3.2 Globulin 2.8 Albumin/Globulin Ratio 1.1 06/09/17 06/09/17 06/09/17 12:07 17:41 22:20 WBC RBC Hgb Hct MCV MCH MCHC RDW Plt Count MPV Neut % (Auto) Lymph % (Auto) [facility] % (Auto) Eos % (Auto) Baso % (Auto) Absolute Neuts (auto) Absolute Lymphs (auto) Absolute Monos (auto) Absolute Eos (auto) Absolute Basos (auto) Absolute Nucleated RBC Nucleated RBC % VBG pH VBG pCO2 VBG pO2 VBG HCO3 VBG O2 Saturation VBG Base Excess Sodium 141 Potassium 5.4 H Chloride 104 Carbon Dioxide 22 Anion Gap 15 H BUN 43 H Creatinine 1.16 H Est GFR ( Amer) 58.4 Est GFR (Non-Af Amer) 45.4 BUN/Creatinine Ratio 37.1 H Glucose 171 H POC Glucose (mg/dL) 174 H 193 H Lactic Acid Calcium 8.8 Total Bilirubin 4.10 H Direct Bilirubin 2.20 H Indirect Bilirubin 1.9 H AST 637 H ALT 366 H Alkaline Phosphatase 146 H Total Protein 6.2 L Albumin 3.4 Globulin 2.8 Albumin/Globulin Ratio 1.2 06/09/17 06/09/17 06/09/17 22:20 22:20 22:20 WBC 17.3 H RBC 4.19 Hgb 10.8 L Hct 35 MCV 84 MCH 26 L MCHC 31 RDW 17 H Plt Count 225 MPV 10 Neut % (Auto) 82.7 Lymph % (Auto) 4.0 L [facility] % (Auto) 12.6 H Eos % (Auto) 0.1 Baso % (Auto) 0.6 Absolute Neuts (auto) 14.3 H Absolute Lymphs (auto) 0.7 L Absolute Monos (auto) 2.2 H Absolute Eos (auto) 0 Absolute Basos (auto) 0.1 Absolute Nucleated RBC 0.01 Nucleated RBC % 0 VBG pH 7.38 VBG pCO2 37 L VBG pO2 38 VBG HCO3 22.2 L VBG O2 Saturation 74.8 VBG Base Excess -2.8 L Sodium Potassium Chloride Carbon Dioxide Anion Gap BUN Creatinine Est GFR ( Amer) Est GFR (Non-Af Amer) BUN/Creatinine Ratio Glucose POC Glucose (mg/dL) Lactic Acid 7.5 H* Calcium Total Bilirubin Direct Bilirubin Indirect Bilirubin AST ALT Alkaline Phosphatase Total Protein Albumin Globulin Albumin/Globulin Ratio Upon arrival, Mrs Everett's son was apprised of the findings of recurrent hepatic insult which has already peaked and is in recovery. Definitive etiology is uncertain, but is highly suspicious for ischemic hepatitis. Certainly this is no longer an OTC supplement interaction as she has not been taking during this admission. Auto-immune hepatitis is also of consideration. Mrs Everett opens her eyes to voice with light touch. She denies pain, SOB, or other issues, but may not be entirely reliable for current status information. Her son states she appears better than earlier in the day, likely due to receiving haloperidol around 2300. Vital Signs Temp 36.3 C 06/09/17 16:36 Pulse 110 06/09/17 20:13 Resp 26 06/09/17 20:30 BP 141/54 06/09/17 20:13 Pulse Ox 95 06/09/17 20:13 Intake & Output 06/08/17 06/09/17 06/09/17 23:59 11:59 23:59 Intake Total 929 634 Output Total 550 100 500 Balance -550 829 134 Intake: IV Fluids 489 634 NS (0.9%) 489 634 Oral 440 0 Output: Urine 100 [place] 550 500 Other: Estimated Void Large # Bowel Movements 1 0 Estimated Stool Amount Small General: WNWD [place] female, mildly lethargic, but arousable Lungs: mild crackles B bases, fair aeration, mild accessory muscle use ( although son states this is improved) CV: TR/RR, normal S1S2 abdomen: mildly distended (chronic per son); hypoactive bowel sounds; soft, non- tender extermities: trace to 1+ B ankle edema Assessment: plan recurrent hepatic injury, suspect ischemic vs less likely auto-immune : discussed plan to transfer to ICU, start high flow oxygen to remove any work of breathing, and give 2L NS w/ trending of labs with Jonnie De Los Santos MD news reporter on-call; He ordered no supplemental oxygen unless progressive work of breathing or desaturation, 1L LR, & trend labs.
[2017-06-09 22:32] LABS: Venous Bicarbonate HCO3 22.2 mmol/L (24-28)
[2017-06-09 22:35] LABS: Hematocrit 35 % (35-47); Hemoglobin 10.8 g/dl (12.0-16.0); Mean Corpuscular HGB Conc 31 g/dl (31-36); Mean Corpuscular Hemoglobin 26 pg (27-31); Mean Corpuscular Volume 84 fL (80-97); Mean Platelet Volume 10 um3 (7.4-10.4); Red Blood Count 4.19 10^6/ul (4.0-5.4); Red Cell Distribution Width 17 % (10.5-15); White Blood Count 17.3 10^3/ul (3.5-10.8)
[2017-06-09 22:37] LABS: Comments Flag Yes
[2017-06-09 22:54] LABS: Albumin 3.4 g/dL (3.2-5.2); BUN/Creatinine Ratio 37.1 (8-20); Calcium 8.8 mg/dL (8.6-10.3); Direct Bilirubin 2.2 mg/dL (0.03-0.18); EGFR African American 58.4 (>60); EGFR Non-African American 45.4 (>60); Globulin 2.8 g/dL (2-4); Indirect Bilirubin 1.9 mg/dL (0.3-1.0); Total Bilirubin 4.1 mg/dL (0.2-1.0); Total Protein 6.2 g/dL (6.4-8.9)
[2017-06-09 22:56] LABS: Potassium 5.4 mmol/L (3.5-5.0)
[2017-06-10] MEDS: Insulin LISPRO* 1 UNITS UNIT SUBCUT SCH ×3 (00:53→12:46)
[2017-06-10] MEDS: Chlorhexidine MOUTHWASH 0.12%* 15 ML UDC TOPICAL SCH (01:53)
[2017-06-10] MEDS: NS 0.9% 1000 ML* 1,000 ML IV SCH ×2 (03:31→06:19)
[2017-06-10] MEDS: Morphine INJ* 4 MG/ML 1 ML CARPUJECT IV PRN (03:56)
[2017-06-10] MEDS: Haloperidol INJ IV/IM* 5 MG/ML AMP IV SLOW PU SCH (06:38)
--- NOTE | 2017-06-10 08:06 | RAD ---
HISTORY: Shortness of breath COMPARISONS: June 09, 2017 VIEWS: 1: frontal portable view of the chest at 7:15 AM FINDINGS: LINES AND TUBES: There is been interval removal of a gastric tube. CARDIOMEDIASTINAL SILHOUETTE: The cardiac silhouette is enlarged. The cardiomediastinal silhouette is otherwise normal for portable technique. PLEURA: The costophrenic angles are sharp. No pleural abnormalities are noted. LUNG PARENCHYMA: There is a diffuse reticular pattern with indistinct pulmonary vessels. ABDOMEN: The upper abdomen is clear. There is no subphrenic gas. BONES AND SOFT TISSUES: No bone or soft tissue abnormalities are noted. IMPRESSION: CARDIOMEGALY WITH PULMONARY INTERSTITIAL EDEMA
[2017-06-10 09:03] LABS: Albumin 3.3 g/dL (3.2-5.2); BUN/Creatinine Ratio 40.4 (8-20); Calcium 8.5 mg/dL (8.6-10.3); EGFR African American 66.3 (>60); EGFR Non-African American 51.5 (>60); Globulin 2.6 g/dL (2-4); Hematocrit 35 % (35-47); Hemoglobin 10.6 g/dl (12.0-16.0); Magnesium 2.8 mg/dL (1.9-2.7); Mean Corpuscular HGB Conc 31 g/dl (31-36); Mean Corpuscular Hemoglobin 27 pg (27-31); Mean Corpuscular Volume 87 fL (80-97); Mean Platelet Volume 10 um3 (7.4-10.4); Phosphorus 3.7 mg/dL (2.5-5.0); Red Blood Count 3.99 10^6/ul (4.0-5.4); Red Cell Distribution Width 17 % (10.5-15); Total Bilirubin 4.6 mg/dL (0.2-1.0); Total Protein 5.9 g/dL (6.4-8.9); White Blood Count 17.7 10^3/ul (3.5-10.8)
[2017-06-10 09:04] LABS: Comments Flag Yes; Potassium 5.4 mmol/L (3.5-5.0)
[2017-06-10] MEDS ORDERED: Thiamine IV* 100 MG/ML 2 ML VIAL IV SCH (10:00)
[2017-06-10] MEDS: Haloperidol INJ IV/IM* 5 MG/ML AMP IV SLOW PU PRN ×2 (10:16→15:31)
--- NOTE | 2017-06-10 12:38 | PN ---
Critical Care Services: Patient returned to ICU with confusion, increasing liver enzymes, and hyperlactatemia. Vital Signs: Temp Pulse Resp BP SpO2 FiO2 98.2 F 108 26 179/80 92 21 Physical Exam: Gen: Appears agitated. Responds to verbal commands intermittently. HEENT: Pupils reactive. No lateral gaze paralysis. Lungs: scattered rhonchi Cardiac: Reg rhythm Extremities: No cyanosis or edema. Neuro:No asterixis Fluid Balance (Past 24 Hours): 06/10/17 06:59 Intake Total 2709 Output Total 500 Balance +2209 Weight 154 lb Intake: IV Fluids 1809 NS (0.9%) 1809 IVPB 900 NS (0.9%) 900 Oral 0 Tube Feeding Tube Feeding Flush Amount Output: Urine [place] 500 Other: Estimated Void Small Date of Last Bowel Movement # Bowel Movements Estimated Stool Amount # Voids 1 Labs: 06/10/17 06/10/17 02:44 08:37 WBC 17.7 H RBC 3.99 L Hgb 10.6 L Hct 35 MCV 87 MCH 27 MCHC 31 RDW 17 H Plt Count 198 MPV 10 Lactic Acid 8.2 H* 06/10/17 06/10/17 08:37 08:37 INR (Anticoag Therapy) 2.65 VBG pH VBG pCO2 VBG pO2 VBG HCO3 VBG O2 Saturation VBG Base Excess Sodium 140 Potassium 5.4 H Chloride 108 Carbon Dioxide 18 L Anion Gap 14 H BUN 42 Creatinine 1.04 BUN/Creatinine Ratio 40.4 H Glucose 116 H POC Glucose (mg/dL) Lactic Acid Calcium 8.5 L Phosphorus 3.7 Magnesium 2.8 H Total Bilirubin 4.60 H Direct Bilirubin Indirect Bilirubin AST 594 H ALT 355 H Alkaline Phosphatase 137 H Ammonia Total Protein 5.9 L Albumin 3.3 06/10/17 10:55 Ammonia 73 Studies: None today Nutrition: None at present (patient pulls feeding tube out) Impression: 1. The combination of an acute confusional state with hyperlactatemia ( elevated lactate level without acidosis) is suggestive of thiamine deficiency. ( The lactate elevation also seems out of proportion to the degree of hepatic failure). The confusion could also represent hospital-acquired delirium. EEG shows no seizure activity. Head CT pending. 2. Am not sure why liver enzymes increased again, but ischemic hepatitis is a consideration. Plan: 1. Measure whole blood TPP level, and start IV thiamine (100 mg/day). 2. Attention to more aggressive nutrition (enteral tube feedings). 3. Use haloperidol to control agitation. 4. Start lactulose (because of elevated ammonia). Neurology input much appreciated. Critical Care Time: 45 minutes
--- NOTE | 2017-06-10 15:06 | RAD ---
HISTORY: Evaluate veins for catheterization COMPARISONS: None relevant TECHNIQUE: Multiple transverse and longitudinal ultrasound images were obtained of the right and left upper extremities from the level of the internal jugular vein inferiorly through to the infra-cubital veins using grayscale, color Doppler, and spectral Doppler imaging with and without compression and with augmentation. FINDINGS: Evaluation is limited by patient motion artifact. VEINS: There is occlusive thrombus noted within the right axillary and basilic veins. Clot is also noted within the antecubital fossa at the cephalic vein, nonocclusive. There is also thrombosis of the left basilic and cephalic veins.. The remainder of the venous system of the right and left upper extremities is compressible throughout its course, with normal flow on color Doppler imaging and normal response to augmentation on spectral Doppler imaging. SOFT TISSUES: Unremarkable. OTHER FINDINGS: None. IMPRESSION: OCCLUSIVE THROMBUS WITHIN THE RIGHT AXILLARY AND BASILIC VEINS AND LEFT BASILIC AND CEPHALIC VEINS, WITH NONOCCLUSIVE THROMBUS NOTED WITHIN THE RIGHT CEPHALIC VEIN
--- NOTE | 2017-06-10 16:35 | RAD ---
INDICATION: Delirium. COMPARISON: There are no prior studies available for comparison. TECHNIQUE: Contiguous axial sections of the brain were obtained from the skull base to the vertex without contrast. FINDINGS: The ventricles, cisterns and sulci are enlarged consistent with diffuse atrophy. No significant focal abnormality or mass effect is seen. There is no evidence for hemorrhage. There is complete opacification of the right maxillary sinus. There is mild mucosal thickening within the left maxillary sinus. The frontal and ethmoid sinuses appear clear. The mastoid air cells appear clear. IMPRESSION: 1. NO EVIDENCE FOR GROSS ACUTE INFARCT, MASS EFFECT OR HEMORRHAGE. 2. OPACIFICATION OF THE RIGHT MAXILLARY SINUS.
[2017-06-10] MEDS ORDERED: EPINEPHrine SYR 0.1 MG/ML* (1:10,000) SYRINGE ONE (17:05)
[2017-06-10] MEDS ORDERED: Atropine SYRINGE* 0.1 MG/ML 10 ML SYRINGE (1 MG) ONE (17:05)
--- NOTE | 2017-06-10 18:36 | RAD ---
INDICATION: Chest tube insertion. COMPARISON: Comparison is made with a prior chest x-ray study from June 10, 2017 at 1550 hours. TECHNIQUE: A portable view of the chest was obtained. FINDINGS: The patient is status post intubation. The endotracheal tube appears low in position approximately one and half centimeters above the gilberto. There is a large tension pneumothorax present on the right side with shift of cardiac and mediastinal structures toward the left. There is a large amount of subcutaneous emphysema present bilaterally within the chest wall and neck. No chest tube is seen. IMPRESSION: 1. LARGE RIGHT TENSION PNEUMOTHORAX. 2. LARGE AMOUNT SUBCUTANEOUS EMPHYSEMA. 3. ENDOTRACHEAL TUBE LOW IN POSITION.
--- NOTE | 2017-06-10 19:07 | RAD ---
INDICATION: Orogastric tube placement. COMPARISON: Comparison is made with a prior chest x-ray study of the same date from 0715 hours TECHNIQUE: A portable view of the chest was obtained. FINDINGS: There is an orogastric tube present which extends down the right mainstem bronchus into the right lung. The heart is moderately enlarged and unchanged in size. The lungs are grossly clear. IMPRESSION: THE OROGASTRIC TUBE IS MALPLACED THE CATHETER TIP IS LOCATED WITHIN THE RIGHT LUNG.
--- NOTE | 2017-06-10 19:48 | RAD ---
INDICATION: Intubation. COMPARISON: Comparison is made with a prior chest x-ray study from approximately 25 minutes earlier. TECHNIQUE: A portable view of the chest was obtained. FINDINGS: There is an endotracheal tube which appear to be low in position approximately 1 cm above the gilberto. There is a chest tube visualized at the right lung base. The side port is in the region of the chest wall. There is interval decrease in size of the right pneumothorax. There is a large amount of subcutaneous emphysema present bilaterally within the chest wall and neck limiting the study. The heart appears moderately enlarged and unchanged. The results of this exam were discussed with the referring clinician. IMPRESSION: 1. INTERVAL DECREASE IN SIZE OF THE RIGHT PNEUMOTHORAX. 2. THERE IS A CHEST TUBE AT THE RIGHT LUNG BASE. THE SIDE PORT APPEARS TO BE IN THE REGION OF THE CHEST WALL. 3. ENDOTRACHEAL TUBE LOW IN POSITION.
[2017-06-10 19:51] VITALS: BP 113/82
--- NOTE | 2017-06-10 22:19 | CONS ---
NEUROLOGY FOLLOWUP NOTE: DATE OF FOLLOWUP: 06/10/17 TUGGER OPERATOR: Dr. De Los Santos. LOCATION: She is in intensive care unit bed 3. CHIEF COMPLAINT: Encephalopathy. INTERVAL HISTORY: Since yesterday, Ms. Everett had worsening of her breathing with tachypnea and was transferred back to the intensive care unit last night. She has not required re-intubation. She continues with agitated delirium, which improves after doses of allopurinol. Her liver enzymes spiked again yesterday to AST 1022, down to 594 this morning. ALT up to 378, down to 355 today. Also her lactic acid was elevated last night at 8.2 and yet her pH on venous blood gas was not acidotic. Her ammonia level this morning is up to 73. She had an EEG earlier today, which I reviewed and reveals diffuse slowing, but no epileptiform discharges or M-waves. She just had a CT scan of the brain a little while ago and the official report is pending, but to my review just shows some atrophy. I do not see any evidence of a hemorrhage, cerebral edema, or infarctions. Again, the final report is pending. MEDICATIONS: Reviewed and she is on: 1. Allopurinol 5 mg IV q.4 hours p.r.n. agitation. 2. Sliding scale insulin. 3. Morphine 1 mg IV q.4 hours as needed for pain. 4. Thiamine 100 mg IV daily started today. 5. Famotidine 20 mg IV q.24 hours. PHYSICAL EXAMINATION: On examination earlier today, she remains afebrile. Most recent blood pressure is 179/80, heart rate is trending in the 100s and it is regular, respiratory rate is generally in the low to mid 20s and oxygen saturation is 99%. Her neck is supple. We are able to arouse her with loud voice. She is lethargic and falls easily back to sleep. She is grimacing movements of her face bilaterally. She has a brisk response to nasal trickle bilaterally. When aroused, she visually regards the examiner and does visually track. She is able to raise her limbs to command. I do not see any myoclonus or asterixis. IMPRESSION: Persistent encephalopathy in the setting of acute hepatic failure, which remains of unknown cause. Her ammonia has spiked up with the liver enzymes further aggravating her encephalopathy. Haloperidol seems to be working and her EKG earlier today did not show prolongation of her QT interval. Discussed the case with Dr. Everett as well as Dr. De Los Santos. Gastroenterology is going to be asked to re-consult and Dr. Everett specifically questioned whether or not it would be reasonable to transfer his mother to a center with a liver specialist, which I think is perfectly reasonable. I will continue to follow along with you. [id number] #: [id number] MTDD
--- NOTE | 2017-06-10 23:41 | EEG ---
ELECTROENCEPHALOGRAPHY: DATE OF STUDY: 06/10/17 LOCATION: She is an inpatient. REFERRING PHYSICIAN: Dr. Chi. CLINICAL PROBLEM: Acute liver failure. The patient was intubated for almost a week and is now extubated. The patient exhibits confusion and agitations. MEDICATIONS: Include: 1. Haloperidol. 2. Morphine p.r.n. 3. Insulin. 4. Lorazepam p.r.n. REPORT: This 16-channel EEG is remarkable for background rhythms consisting of largely theta activity paracentrally and occipitally. There is abundant beta activity and also muscle artifact and moving artifact intermittently. There are no M-waves. Sleep stages are not recognized. The patient is intermittently agitated. Activation procedures are not attempted. There are no focal, lateralized, or epileptiform discharges. CLINICAL IMPRESSION: Abnormal EEG due to generalized slowing of background rhythms. There were no epileptiform features to this recording. This tracing is compatible with diffuse cerebral dysfunction. [id number] #: [id number] MTDD
--- NOTE | 2017-06-11 13:24 | DS ---
SUMMARY: DATE OF ADMISSION: 06/01/17 DATE : 06/10/17 HISTORY: 77-year-old female who was admitted with acute liver failure of undetermined etiology and hepatic encephalopathy. The patient initially required lactulose along with intubation and mechanical ventilation, however her liver function improved and these interventions were discontinued. She was then transferred out of the ICU, but returned to the ICU about 36 hours later because of an increase in liver enzymes and agitated confusion. The working diagnosis at that time was possible ischemic hepatitis (because of the wide swings in liver function) and delirium vs hepatic encephalopathy. On 06/10/17, a feeding tube was inadvertently placed into the right lung, and was removed after discovering the misplacement on the post-procedural chest x-ray. The patient continued to be agitated and confused, and was noted to have increased oral secretions and began breathing with a gurgling sound (suggesting aspiration ). Despite aggressive suctioning efforts to clear secretions, the patient developed O2 desaturation (refractory to 100% O2), followed quickly by bradycardia, and cardiac arrest. The medical team was present at the bedside during these developments, and resuscitative efforts were initiated immediately. The resuscitation proceeded according to BLS and ACLS guidelines. During the resuscitation, subcutaneous emphysema was noted in the anterior thorax, and a chest x-ray showed a right-sided tension pneumothorax. Decompression was immediately begun by inserting two 18-gauge needles below the clavicles and into the pleural space, and entering the pleural space through an incision in the 5th intercostal space along the anterior axillary line. A chest tube was placed through the incision and hooked to suction. Repeat chest film showed re-expansion of the lung (and the endotracheal tube was pulled back to correct a tip malposition in right mainstem bronchus). Following re-expansion of the lung, the patient maintained a systolic BP of 110 on epinephrine and levophed drips (both at 20 mcg/min), but continued to have periods where pulses were lost, requiring further resuscitative efforts. Following the third cardiac arrest, the patient's son requested no further resuscitative attempts, and the patient was pronounced at 6:35 PM (about 90 minutes after the onset of the cardiac arrest). The patient's son and [id number] were present at the bedside, and requested an autopsy (the medical referral coordinator refused the case on forensic grounds, so the family will proceed with a private autopsy). FINAL DISCHARGE DIAGNOSES: 1. Acute liver failure, possibly from ischemic hepatitis. 2. Acute confusional state: delirium vs hepatic encephalopathy 3. Pulmonary aspiration leading to hypoxemia and bradycardiac cardiac arrest. 4. Pneumothorax during cardiopulmonary resuscitation. [id number] #: [id number] MTDD
--- NOTE | 2017-06-11 13:31 | PRO ---
PROCEDURE REPORT: DATE OF PROCEDURE: 06/10/17 PROCEDURE: Endotracheal intubation. INDICATION: This patient was a 77-year-old female who was in the hospital for acute liver failure and agitated confusion, and suffered a cardiac arrest requiring endotracheal intubation. PROCEDURE IN DETAIL: Under videoscopic guidance, a size 7.5 endotracheal tube was inserted into the trachea, and placement was verified with end-tidal subsequent CO2 detection. A chest x-ray following the intubation revealed a tehnsion pneumothorax (corrected with a chest tube) and the tip of the tube in the right mainstem bronchus (prompting retraction of the tube 2 cm). [id number] #: [id number] MTDD
[2017-06-12 13:57] LABS: Whole Blood Vitamin B1 Level 152 nmol/L (70-180)
== END 2017-06-10 18:35 | disposition expired | DRG 207 ==
LOC: ED 13:42 → ICU 16:10 → MED 06-08 13:25 → ICU 06-09 23:57
PROVIDERS: ADMIT Internal Medicine Critical Care Medicine; ATTEND Internal Medicine Critical Care Medicine
PROC: 0BH17EZ Insertion of Endotracheal Airway into Trachea, Via Natural or Artificial Opening (ICD-10-PCS; principal; 2017-06-01)
PROC: 5A1955Z Respiratory Ventilation, Greater than 96 Consecutive Hours (ICD-10-PCS; 2017-06-01)
PROC: 5A09357 Assistance with Respiratory Ventilation, Less than 24 Consecutive Hours, Continuous Positive Airway Pressure (ICD-10-PCS; 2017-06-01)
PROC: 05HM33Z Insertion of Infusion Device into Right Internal Jugular Vein, Percutaneous Approach (ICD-10-PCS; 2017-06-01)
PROC: 0DHA7UZ Insertion of Feeding Device into Jejunum, Via Natural or Artificial Opening (ICD-10-PCS; 2017-06-04)
PROC: 0BP1XDZ Removal of Intraluminal Device from Trachea, External Approach (ICD-10-PCS; 2017-06-07)
PROC: 0BH17EZ Insertion of Endotracheal Airway into Trachea, Via Natural or Artificial Opening (ICD-10-PCS; 2017-06-10)
PROC: 4A00X4Z Measurement of Central Nervous Electrical Activity, External Approach (ICD-10-PCS; 2017-06-10)
PROC: 5A12012 Performance of Cardiac Output, Single, Manual (ICD-10-PCS; 2017-06-10)
DX: J96.01 Acute respiratory failure with hypoxia (principal); K72.00 Acute and subacute hepatic failure without coma; D65 Disseminated intravascular coagulation [defibrination syndrome]; N17.0 Acute kidney failure with tubular necrosis; R57.1 Hypovolemic shock; J93.0 Spontaneous tension pneumothorax; R13.10 Dysphagia, unspecified; E87.2 Acidosis; K71.2 Toxic liver disease with acute hepatitis; E87.1 Hypo-osmolality and hyponatremia; F05 Delirium due to known physiological condition; E72.20 Disorder of urea cycle metabolism, unspecified; E11.65 Type 2 diabetes mellitus with hyperglycemia; D64.9 Anemia, unspecified; I35.0 Nonrheumatic aortic (valve) stenosis; F41.9 Anxiety disorder, unspecified; Z82.49 Family history of ischemic heart disease and other diseases of the circulatory system; Z83.3 Family history of diabetes mellitus; Z88.0 Allergy status to penicillin; Z85.42 Personal history of malignant neoplasm of other parts of uterus; E87.6 Hypokalemia; R60.1 Generalized edema; M25.551 Pain in right hip; M54.5 Low back pain; R45.1 Restlessness and agitation; I46.9 Cardiac arrest, cause unspecified
CPT/HCPCS: 36415; 70450; 71010; 71275; 74174; 76705; 80048; 80053; 80074; 80076; 80329; 81003; 81015; 82140; 82270; 82330; 82550; 82607; 82803; 83516; 83605; 83615; 83735; 83880; 84100; 84425; 84439; 84443; 84484; 85025; 85027; 85384; 85610; 85730; 86038; 86790; 86850; 86900; 86901; 87040; 87077; 87150; 87205; 87252; 87641; 92950; 93005; 93970; 94002; 94003; 94760; 95816; A9270-GY; G0480; J0132; J0171; J0461; J1630; J1650; J1940; J2060; J2250; J2270; J2704; J3010; J3411; J3430; J3475; J3480; J7060; P9047; Q9967